=== PATIENT | male | born 1955 | race Hispanic/Latino ===

== ENCOUNTER 2024-10-27 02:03 | Inpatient (IN) | payer OTHER, MEDICARE ==
[2024-10-27] VITALS (33 sets, daily range): BP systolic 81–121; BP diastolic 46–79; PULSE 59–81; RESP 12–23; TEMP 97.8–99.4; O2SAT 96–98
[~2024-10-27] VITALS: Ht 172.7 cm; Wt 83.9 kg
[2024-10-27 02:18] LABS: BASOPHILS # (AUTO) 0.07 K/uL (0.00-0.20); BASOPHILS % (AUTO) 0.7 % (0.0-5.0); EOSINOPHILS # (AUTO) 0.32 K/uL (0.00-0.70); HEMATOCRIT 26.1 % (42-54); IMMATURE GRANULOCYTE ABSOLUTE 0.07 K/uL (0-1); LYMPHOCYTES # (AUTO) 1.9 K/uL (1.0-4.8); LYMPHOCYTES % (AUTO) 17.3 % (21.0-51.0); MEAN CORPUSCULAR HEMOGLOBIN 21.8 pg (27.0-33.0); MEAN CORPUSCULAR HGB CONC 31.4 g/dL (32.0-36.0); MEAN CORPUSCULAR VOLUME 69.4 fL (79-99); MONOCYTES # (AUTO) 0.8 K/uL (0.1-1.0); NEUTROPHILS # (AUTO) 7.7 K/uL (1.8-7.7); NEUTROPHILS % (AUTO) 71.3 % (40.0-77.0); PLATELET COUNT (AUTO) 309 K/uL (130-400); RED BLOOD CELL COUNT(AUTO) 3.76 MIL/uL (4.50-6.20); RED CELL DISTRIBUTION WIDTH 18.6 % (11.0-15.5); WHITE BLOOD COUNT (AUTO) 10.7 K/uL (4.8-10.8)
[2024-10-27 02:25] LABS: CREATININE 1.2 mg/dL (0.5-1.3); POTASSIUM 4.2 mmol/L (3.5-5.1)
--- NOTE | 2024-10-27 02:30 | ERN ---
ED Note History of Present Illness Stated Complaint: CHEST PAIN Chief Complaint: Chest Pain Time Seen by MD: 02:08 Dictation: This is a 68-year-old male who presented to the emergency room via EMS with complaints of midsternal chest pain that started yesterday. Over the past 24 hours he has been taking nitroglycerin without much relief. He stated that in the past nitro would relieve the pain due to persistent pain he came into the ER for evaluation. Denied any diaphoresis syncope. He denied any radiation to other areas. This is the patient's 1st presentation to this hospital and no old records are available for review Temperature 97 pulse 73 respirations 12 blood pressure 123/79 with a pulse oximetry of 98% on room air His chronic medical problems include diabetes mellitus type 2, hypertension, hypercholesterolemia, history of an OR and coronary artery disease status post stents in 2015 or so. Allergies: Coded Allergies: No Known Allergies (Unverified Allergy, Unknown, 10/27/24) Past Medical History Past Medical History: Diabetes-Type II, High Cholesterol, Hypertension, OR Surgical History: Other Surgical History Other: 2 STENT PLACEMENTS Family History: Negative Social History: Smokers (Admits to smoking cigarettes daily), Drugs (Admits to cocaine), ETOH RN Note Reviewed/Agreed w/PFSH: Yes Review of System Dictation Constitutional: Negative for fever,chills, and weight loss Eyes: Negative for injury, pain,redness, and discharge ENT: Negative for injury,pain or swelling Cardiovascular: Pause for chest pain, denies palpitations, and edema Respiratory: Negative for shortness of breath, cough, and wheezing, Abdomen/GI: Negative for abdominal pain, nausea, vomiting, diarrhea, and constipation Back: Negative for injury and pain : Negative for injury, bleeding and discharge MS/Extremity: Negative for injury and deformity Skin: Negative for rash, and discoloration Neuro: Negative for headache, weakness, numbness, tingling, and seizure Psych: Negative for suicide ideation, homicidal ideation, and hallucinations Initial Vital Sign VS Vital Signs Date Time Temp Pulse Resp B/P (MAP) Pulse Ox O2 Delivery O2 Flow Rate FiO2 10/27/24 02:07 97.0 73 12 123/79 98 Room Air 0 10/27/24 03:00 21 Physical Exam Dictation General: awake, alert, NAD obese not in any distress Head/Face: Normocephalic, atraumatic Eyes: PERRL, EOMI, vision at baseline ENT: oral cavity clear, TMs clear, no signs of infection Neck: Trachea midline, supple, no nuchal rigidity Cardiovascular: RRR, normal S1/S2, No MRGs, no JVD Respiratory: Emphysematous chest with increased AP diameter, prolonged expiratory phase with occasional rhonchi Abdomen: Soft, non-tender, non-distended, normal bowel sounds, no guarding or rebound. Skin: Warm, dry, normal turgor, no rash MS/Extremity: Pulses equal, no cyanosis, neurovascular intact, FROM Neuro: COAx4, GCS 15, strength 5/5, CN 2-12 intact, normal cerebellar exam, normal gait, Psych: Normal behavior, mood, and affect normal Extremities-trace edema without any palpable cords, Homans sign is negative Results (Laboratory/Radiology) Laboratory/Radiology Laboratory Tests Test 10/27/24 02:08 10/27/24 02:34 10/27/24 03:22 White Blood Count 10.7 K/uL (4.8-10.8) Red Blood Count 3.76 MIL/uL (4.50-6.20) L Hemoglobin 8.2 g/dL (14.0-18.0) L Hematocrit 26.1 % (42-54) L Mean Corpuscular Volume 69.4 fL (79-99) L Mean Corpuscular Hemoglobin 21.8 pg (27.0-33.0) L Mean Corpuscular Hemoglobin Concent 31.4 g/dL (32.0-36.0) L Red Cell Distribution Width 18.6 % (11.0-15.5) H Platelet Count 309 K/uL (130-400) Mean Platelet Volume 9.6 fL (7.5-10.5) Immature Granulocyte % (Auto) 0.7 % (0-1) Neutrophils (%) (Auto) 71.3 % (40.0-77.0) Lymphocytes (%) (Auto) 17.3 % (21.0-51.0) L Monocytes (%) (Auto) 7.0 % (3.0-13.0) Eosinophils (%) (Auto) 3.0 % (0.0-8.0) Basophils (%) (Auto) 0.7 % (0.0-5.0) Neutrophils # (Auto) 7.7 K/uL (1.8-7.7) Lymphocytes # (Auto) 1.9 K/uL (1.0-4.8) Monocytes # (Auto) 0.8 K/uL (0.1-1.0) Eosinophils # (Auto) 0.32 K/uL (0.00-0.70) Basophils # (Auto) 0.07 K/uL (0.00-0.20) Absolute Immature Granulocyte (auto 0.07 K/uL (0-1) Nucleated Red Blood Cells 0.0 % (0.0-0.19) Red Blood Cell Morphology See comments Prothrombin Time 12.1 SEC (9.6-11.6) H Prothromb Time International Ratio 1.09 (0.85-1.15) Activated Partial Thromboplast Time 29.3 SEC (26.3-35.5) Sodium Level 133 mmol/L (136-145) L Potassium Level 4.2 mmol/L (3.5-5.1) Chloride Level 98 mmol/L (101-111) L Carbon Dioxide Level 27 mmol/L (21-32) Blood Urea Nitrogen 18 mg/dL (7-18) Creatinine 1.2 mg/dL (0.5-1.3) Glomerular Filtration Rate Calc 65 mL/min (>90) Random Glucose 101 mg/dL (70-105) Total Calcium 8.3 mg/dL (8.5-10.1) L Total Creatine Kinase 467 U/L (21-232) *H 564 U/L (21-232) #*H B-Type Natriuretic Peptide 1010 pg/mL (0-100) H Troponin I 7.25 ng/mL (0.00-0.05) *H Troponin I High Sensitivity 06063 ng/L (4-75) *H Labs Reviewed?: Yes EKG Comment: Twelve lead EKG done on 10/27/2024 at 8:07 p.m. showed a heart rate of 71, [place] interval 172, QRS duration 132, QT/QTC 446/485 Impression normal sinus rhythm with left bundle branch block and ST depressions in the anterolateral leads with a possible ST elevations in V2 V3. Poor progression of the R-waves. Interpreted by ER MD Dr. Maher Repeat EKG done on 10/27/2024 at 3:08 a.m. showed a heart rate of 70, KY interval 171, QRS 128, QT/QTC 459/495 Impression normal sinus rhythm with ST depressions in the lateral leads and ST elevations in the anterior leads. Interpreted by ER MD Dr. Maher X-RAY Comment: Portable chest x-ray done in the ER showed cardiomegaly with bilateral diffuse prominence of the pulmonary vasculature with a small right pleural effusion overall suggestive of pulmonary edema Interpreted by ER MD Dr. Maher ED Course ED Course Orders Procedure Category Date Status Time Cbc With Differential LAB 10/27/24 Complete 02:08 B-Type Natriuretic LAB 10/27/24 Complete Peptide 02:08 Chest 1vw RAD 10/27/24 Taken 02:08 Creatine Kinase, Total LAB 10/27/24 Complete 02:08 Troponin Poc Order LAB 10/27/24 Complete Only 02:08 Basic Metabolic Panel LAB 10/27/24 Complete 02:08 12 Lead Ekg Tracing- EKG 10/27/24 Logged Technical 02:08 Urinalysis Profile LAB 10/27/24 Logged 02:18 Drug Screen Urine LAB 10/27/24 Logged 02:18 Heparin 25,000 PHA 10/27/24 In Process Units/250ml D5w 03:00 Morphine 4mg Syg PHA 10/27/24 Complete (Morphine 4mg Syg) 03:00 Ondansetron 4mg Inj PHA 10/27/24 Complete (Zofran 4mg Inj) 03:00 Aspirin 325mg Tab PHA 10/27/24 Complete (Aspirin 325mg Tab) 03:00 Nitroglycerin 0.4mg PHA 10/27/24 Complete Sl Tab (Nitrostat) 03:00 12 Lead Ekg Tracing- EKG 10/27/24 Logged Technical 02:59 Creatine Kinase, Total LAB 10/27/24 Complete 02:59 Troponin I High LAB 10/27/24 Complete Sensitivity 02:59 Nitroglycerin PHA 10/27/24 In Process 50mg/D5w 250ml 03:30 Troponin Poc Order LAB 10/27/24 Logged Only 03:03 Pt And Ptt LAB 10/27/24 Complete 03:07 Heparin 5,000 Unit PHA 10/27/24 In Process Vial (Heparin 5,000 U 05:00 Heparin 5,000 Unit PHA 10/27/24 Complete Vial (Heparin 5,000 U 03:52 Heparin 5,000 Unit PHA 10/27/24 Complete Vial (Heparin 5,000 U 04:00 Clopidogrel 300mg Tab PHA 10/27/24 Complete (Plavix 300mg Tab) 04:00 Clopidogrel 300mg Tab PHA 10/27/24 Complete (Plavix 300mg Tab) 03:55 Clopidogrel 300mg Tab PHA 10/27/24 Complete (Plavix 300mg Tab) 04:00 Heparin 5,000 Unit PHA 10/27/24 Complete Vial (Heparin 5,000 U 04:00 Show Dog Trainer Procedure CATH 10/27/24 In Process Request 07:00 Lidocaine Hcl PHA 10/27/24 Complete 400mg/20ml (Lidocaine 04:19 Iohexol (Omnipaque) PHA 10/27/24 Complete 04:19 Heparin-Ns 1,000 PHA 10/27/24 Complete Unit/500 Ml 04:19 Nitroglycerin 50mg PHA 10/27/24 Complete Vial (Tridil 50mg/10m 04:19 Echo 2-D Complete ECHO 10/27/24 Logged 04:20 Cbc Without LAB 10/27/24 Logged Differential 06:00 Cbc Without LAB 10/27/24 Logged Differential 18:00 Cbc Without LAB 10/28/24 Verified Differential 06:00 Cbc Without LAB 10/28/24 Verified Differential 18:00 Basic Metabolic Panel LAB 10/28/24 Verified 04:00 Troponin I High LAB 10/27/24 Logged Sensitivity 04:20 Troponin I High LAB 10/27/24 Logged Sensitivity 07:20 Drug Screen Urine LAB 10/27/24 Logged 04:22 Bivalirudin (Angiomax) PHA 10/27/24 Complete 04:25 Heparin 10,000 PHA 10/27/24 Complete Unit/10ml (Heparin 04:25 Midazolam Hcl (Versed) PHA 10/27/24 Complete 04:34 Atropine 1mg Syg PHA 10/27/24 Complete (Atropine 1mg Syg) 04:57 Show Dog Trainer Vital Signs CPOE 10/27/24 Transmitted 05:33 Intake/Output Show Dog Trainer CPOE 10/27/24 Transmitted 05:33 Physician CPOE 10/27/24 Transmitted Notification Cathlab 05:33 Heart Healthy Diet DIET 10/27/24 Transmitted Breakfast Activity: Bedrest X CPOE 10/27/24 Transmitted ___ Hrs 05:33 Metoprolol Tartrate PHA 10/27/24 In Process 25 Mg Tab (Lopressor 09:00 Aspirin 81mg Chew Tab PHA 10/27/24 In Process (Aspirin 81mg Chew 09:00 Clopidogrel 75mg Tab PHA 10/28/24 In Process (Plavix 75mg) 09:00 Initiate Hypoglycemia MARTINA 10/27/24 In Process Protocol 05:33 Dextrose 50%-Water PHA 10/27/24 In Process (D50w) 06:00 Glucagon 1mg Kit PHA 10/27/24 In Process (Glucagon 1mg Kit) 06:00 Initiate MARTINA 10/27/24 In Process Hyperglycemia Protoco 05:33 Atorvastatin 40mg PHA 10/27/24 In Process (Lipitor 40mg) 21:00 Edm Admit Bridge Order ADM 10/27/24 Verified 05:54 Admit Orders ADM 10/27/24 Verified 05:54 Current Medications Medications (Trade) Dose Ordered Sig/Daniel Route PRN Reason Start Time Stop Time Status Last Admin Dose Admin Aspirin (Aspirin 325mg Tab) 325 mg ONCE ONCE PO 10/27/24 03:00 10/27/24 03:01 DC 10/27/24 04:01 Aspirin (Aspirin 81mg Chew Tab) 81 mg DAILY PO 10/27/24 09:00 11/26/24 08:59 Atorvastatin Calcium (LIPItor 40MG) 40 mg HS PO 10/27/24 21:00 11/26/24 20:59 Atropine Sulfate (Atropine 1mg Syg) 1 mg STK-MED ONCE IVP 10/27/24 04:57 10/27/24 04:57 DC Bivalirudin (Angiomax) 250 mg STK-MED ONCE IV 10/27/24 04:25 10/27/24 04:26 DC Clopidogrel Bisulfate (plaVIX 300MG TAB) 300 mg STK-MED ONCE .ROUTE 10/27/24 03:55 10/27/24 03:56 DC Clopidogrel Bisulfate (plaVIX 300MG TAB) 600 mg ONCE ONCE PO 10/27/24 04:00 10/27/24 04:01 DC 10/27/24 04:02 Clopidogrel Bisulfate (plaVIX 300MG TAB) 600 mg ONCE ONCE PO 10/27/24 04:00 10/27/24 04:01 DC Clopidogrel Bisulfate (plaVIX 75MG) 75 mg DAILY PO 10/28/24 09:00 11/27/24 08:59 Dextrose (D50w) 50 ml AD PRN IV HYPOGLYCEMIA PROTOCOL 10/27/24 06:00 11/26/24 05:59 Glucagon (Glucagon 1mg Kit) 1 mg AD PRN IM HYPOGLYCEMIA PROTOCOL 10/27/24 06:00 11/26/24 05:59 Heparin Sodium (Porcine) (HEParin 10,000 UNIT/10ML) 10,000 unit STK-MED ONCE .ROUTE 10/27/24 04:25 10/27/24 04:26 DC Heparin Sodium (Porcine) (HEParin 5,000 UNIT VIAL) *calculation based on ACTUAL B... AD PRN IV HEPARIN PROTOCOL 10/27/24 05:00 11/26/24 04:59 Heparin Sodium (Porcine) (HEParin 5,000 UNIT VIAL) 5,000 unit STK-MED ONCE .ROUTE 10/27/24 03:52 10/27/24 03:52 DC Heparin Sodium (Porcine) (HEParin 5,000 UNIT VIAL) 8,000 unit ONCE SQ 10/27/24 04:00 10/27/24 04:02 DC Heparin Sodium (Porcine) (HEParin 5,000 UNIT VIAL) 8,000 unit ONCE ONCE IV 10/27/24 04:00 10/27/24 04:03 DC 10/27/24 04:07 Heparin Sodium/ Dextrose 250 ml @ 0 mls/hr PROTOCOL PRN IV PROTOCOL 10/27/24 03:00 10/28/24 02:59 10/27/24 03:43 Heparin Sodium/ Sodium Chloride 1,000 ml @ As Directed STK-MED ONCE IV 10/27/24 04:19 10/27/24 04:19 DC Iohexol (Omnipaque) 35,000 mg STK-MED ONCE IV 10/27/24 04:19 10/27/24 04:19 DC Lidocaine HCl (Lidocaine HCl 400mg/20ml) 20 ml STK-MED ONCE .ROUTE 10/27/24 04:19 10/27/24 04:19 DC Metoprolol Tartrate (loprESSOR) 25 mg BID PO 10/27/24 09:00 11/26/24 08:59 Midazolam HCl (Versed) 2 mg STK-MED ONCE .ROUTE 10/27/24 04:34 10/27/24 04:35 DC Morphine Sulfate (morPHINE 4MG SYG) 4 mg ONCE ONCE IVP 10/27/24 03:00 10/27/24 03:01 DC 10/27/24 04:06 Nitroglycerin (Nitrostat) 0.4 mg AD PRN SL CHEST PAIN 10/27/24 03:00 10/27/24 03:06 DC Nitroglycerin (Tridil 50mg/ 10ml) 50 mg STK-MED ONCE .ROUTE 10/27/24 04:19 10/27/24 04:19 DC Nitroglycerin/ Dextrose 0 ml @ 0 mls/hr AD PRN IV TITRATE 10/27/24 03:30 11/26/24 03:29 10/27/24 03:40 Ondansetron HCl (zoFRAN 4MG INJ) 4 mg ONCE ONCE IVP 10/27/24 03:00 10/27/24 03:01 DC 10/27/24 04:02 Vital Signs Date Time Temp Pulse Resp B/P (MAP) Pulse Ox O2 Delivery O2 Flow Rate FiO2 10/27/24 04:00 66 18 103/67 98 Room Air* 0 21 10/27/24 03:40 116/77 10/27/24 03:30 91 20 120/69 98 Room Air* 0 21 10/27/24 03:15 92 20 120/69 97 Room Air* 0 21 10/27/24 03:00 98.1 91 18 129/69 97 Room Air* 0 21 10/27/24 02:07 97.0 73 12 123/79 98 Room Air 0 I We will perform diagnostic labs, advanced imaging and administer medications according to the patient's complaint. Once the results are available, will review and personally interpreted the labs to rule out any acute life-threateni ng emergency the trach require immediate intervention and treatment. I will then re-evaluate the patient after treatment and diagnostic exams have return to determine whether the patient requires any further testing, can safely be discharged home or need further admission to hospital for additional treatment and evaluation. Labs reviewed BNP 7 showed a sodium of 133 BUN and creatinine are 18 and 1.2 total CK 467 1st set of troponin 7.25. Brain natriuretic peptide is 10 10. CBC showed a white count of 10.7 hemoglobin of 8.2 platelets 309 EKG reviewed. 2:50 a.m.-consulted Dr. Parvez Loomis regional truck driver on-call and shared the EKGs and history and available labs. We will repeat the chest pain bundle end if enzymes trending up we will notify Dr. Loomis for emergent catheterization 3:05 a.m. repeat set of troponins and repeat EKG requested. Patient is started on nitro drip and heparin drip. [place] [address] Dr[address] Loomis was notified immediately and he came in to evaluate the patient and pursue left heart catheterization 4:[address] Loomis took the patient to clinical laboratory science professor for left heart and patient will be admitted to the intensive care unit postprocedure 4:46 a.m. paged mid-level provider Randi for hospitalist group-no response 5:01 a.m. paged mid-level provider randi for hospitalist group-no response 5:19 a.m. paged mid-level provider randi for admission-awaiting call back 5:40 a.m. personally located mid-level provider and gave the face sheet and discussed the patient the patient will be going to intensive care unit after the emergent left heart catheterization for STEMI. She accepted the patient for admission and further management HEART Score Response (Comments) Value History: Moderate suspicion (+1) 1 EKG: Repolarization changes 1 Age: > 65yrs (+2) 2 Risk Factors: 3+ risk factors (+2) 2 HEART Score Risk: Mod Risk for MACE (4-6) Total 6 Medical Decision Making MDM MDM: Differential diagnosis: ACS, NSTEMI, STEMI, pericarditis, atypical chest pain Rationale: Tests considered and ordered secondary to shared decision making include: labs, ECG and radiology Previous outside records reviewed: Old ER visits. Risk of complication and/or morbidity or mortality of patient management: None Medications-Per medication reconciliation Need for hospitalization: Patient does meet criteria for hospitalization. Need for emergency major/minor surgery: No There are no social concerns with this patient. Prescription drug management Prescriptions will include symptomatic care Patient's prior external medical records from other ER visits were reviewed by me as indicated. Prior testing and results from previous visits were reviewed. Prior tests were taken into account with medical decision making and resource utilization, independent historian/historians were used to obtain complete medical history. I independently interpreted the test that were performed, results were reviewed by me and considered findings on radiology if ordered. Medical management and examination interpretation discussions were had by me wi th other qualified healthcare professionals as indicated for the patient's care. Problem List Problem List: (1) Chest pain (2) Diabetes mellitus (3) Coronary artery disease (4) Hypertension (5) Tobacco abuse (6) Cocaine abuse (7) Acute anterior myocardial infarction (8) Acute ST elevation myocardial infarction Critical Care Note Critical Time: 45 minutes Comment(s) Life-threatening illness;-acute ST-elevation OR-anterior, Risk of morbidity mortality-high Complexity of medical decision making-high (X) high probability of sudden clinically significant deterioration in the patient's condition required the highest level of my preparedness to intervene urgently. I provided critical care services requiring my direct and personal management as noted below; (x) chart data review (x) reviewing nurse's notes and/charts (x) documentation time (x) consultation collaboration on findings and therapy options (x) medication orders and management (x) re-evaluations (x) care, transfer of care, and discharge plans (x) ordering and interpreting studies (x) ordering and reviewing labs (x) obtaining necessary history from family, EMS, longterm, private MD, surrogate decision makers because patient was unable to give history due to limitations in the mental status (x) aggregate critical care time was (45 ) minutes. This includes only time during which I was engaged in work directly related to the patient's care as described above whether at the bedside or elsewhere in the ER while the patient was critical. My time did not include minutes spent treating any other patients simultaneously or on activities that did not directly contribute to the patient's treatment. It did not include time spent performing other reported procedures or services of residents if any. Anuradha Maher MDFCCP DX & DISP Disposition: Inpatient Decision to Admit Time: 02:29 Departure Impression: Primary Impression: Chest pain Additional Impressions: Diabetes mellitus, Coronary artery disease, Hypertension, Tobacco abuse, Cocaine abuse, Acute ST elevation myocardial infarction Condition: Stable Additional Instructions: Patient was informed of all the diagnostic labs and procedures conducted in the emergency room today and demonstrated understanding of the results. I personally reviewed and interpreted all the diagnostic exams performed in the ER today. The patient will be admitted to the hospital for further treatment and evaluation. Disposition-admit to facility Condition-stable/guarded Course-uncertain at this time Pain status-decreased Assessment-exam unchanged Admission Certification- I certify that the patients status is appropriate and is based on my best clinical judgment and the patient's condition as documented in the medical records Referrals: NONE (PCP) ANURADHA MAHER MD Oct 27, 2024 02:30
[2024-10-27 02:37] LABS: B-TYPE NATRIURETIC PEPTIDE 1010 pg/mL (0-100)
[2024-10-27] MEDS ORDERED: NITROGLYCERIN 0.4 MG SL TAB SL PRN (03:00)
[2024-10-27 03:34] LABS: INR 1.09 (0.85-1.15); PROTHROMBIN TIME 12.1 SEC (9.6-11.6)
[2024-10-27 03:35] LABS: PARTIAL THROMBOPLASTIN TIME 29.3 SEC (26.3-35.5)
[2024-10-27] MEDS: NITROGLYCERIN 50MG/D5W 250ML 1 BOT IV PRN (03:40)
[2024-10-27] MEDS: HEParin 25,000 UNITS/250ML D5W 250 ML IV PRN (03:43)
[2024-10-27] MEDS ORDERED: HEParin 5,000 UNIT VIAL SQ SCH (04:00)
[2024-10-27] MEDS: ASPIRIN 325MG TAB PO ONE (04:01)
[2024-10-27] MEDS: ondanSETRON 4MG INJ IVP ONE (04:02)
[2024-10-27] MEDS: cloPIDOgrel 300MG TAB PO ONE ×2 (04:02→04:03)
[2024-10-27] MEDS: cloPIDOgrel 300MG TAB ONE (04:02)
[2024-10-27] MEDS: HEParin 5,000 UNIT VIAL ONE (04:03)
[2024-10-27] MEDS: morPHINE 4 MG SYG IVP ONE (04:06)
[2024-10-27] MEDS: HEParin 5,000 UNIT VIAL IV ONE (04:07)
[2024-10-27] MEDS ORDERED: HEParin-NS 1,000 UNIT/500 ML 1,000 ML IV ONE (04:19)
[2024-10-27] MEDS ORDERED: IOHEXOL 350 MG/ML 100ML INFUS..BTL IV ONE (04:19)
[2024-10-27] MEDS ORDERED: LIDOCAINE HCL 400MG/20ML VIAL ONE (04:19)
[2024-10-27] MEDS ORDERED: NITROGLYCERIN 50MG VIAL ONE (04:19)
--- NOTE | 2024-10-27 04:20 | CONS ---
[facility] Cardiology Consultation Note CARDIOLOGY CONSULTATION October Chief complaint: This is a 68-year-old male presents with 24 hours of retrosternal pain and ST-elevation anterior wall myocardial infarction. History of present illness: Patient has known coronary artery disease and underwent placement of a coronary stent [place] [address] Perez and he has been. He began experiencing chest pain yesterday which has been more or less constant nature. His initial EKG showed some ST elevation in V1 through V3. Initial troponin was seven. He gave some history of cocaine use and because of this it was decided to place him on intravenous nitroglycerin and repeat enzymes and EKGs. [place] troponin was [address] and he is having continued pain. A STEMI code was called. I contacted Dr. Kulkarni states that Dr. Sears is covering for intervention for him. Dr. Sears happens to here in the emergency room and has asked me to take the patient to the logging rafter laborer for Dr. Kulkarni. Past medical history: He has a history of hypertension diabetes dyslipidemia. There was no history of previous CVAs ulcers phlebitis. He is status post a partial thyroidectomy. Review of systems: Says about five or six days ago he had a syncopal spell he did not have any chest pain at that time. When he woke in the morning he did not seek any medical attention. Is not clear whether he was using cocaine at that time. Allergies: No known allergies Surgical history: He is status post tonsillectomy and partial thyroid lobectomy. Family history: Positive in multiple family members for coronary atheroscleroti c heart disease Medications: Not available Physical exam: Blood pressure is running 120/70 heart rate is in the 70s the patient is afebrile. There was no elevation of the jugular venous pressure. No bruits are heard. S1 normal S2 physiologically split. No murmur appreciable. Abdomen is soft. Extremities show no edema. Posterior tibial pulses are 2+. Laboratory studies: White count is 10.7 hemoglobin 8.2 platelet count is 214750. Potassium 4.2 BUN 18 creatinine 1.2. CKs were 476 and 564 troponin was 7.25 but repeat troponins 97785 BNP of a 1000. Assessment: 1. Acute anterior ST-elevation myocardial infarction with history of cocaine use no improvement with intravenous nitroglycerin. 2. CAD status post remote stenting with Dr. Kulkarni at [facility] approximately 2014 3. Hypertension 4. Diabetes mellitus type 2 5. History of cocaine use 6. Dyslipidemia 7. Microcytic anemia Plan: Plan is to proceed with emergent left heart catheterization and possible percutaneous intervention. Risks benefits alternatives have been fully discussed with the patient. He has received aspirin 325 clopidogrel 600 heparin 8000 and intravenous nitroglycerin. Continues to have ongoing pain. The patient will be at increased risk for bleeding complications given his microcytic anemia on the other hand he is having an anterior ST-elevation VT and I believe that the risks benefit ratio was in favor of proceeding with emergent left heart catheterization. AIYANA RAYMUNDO MD Oct 27, 2024 04:20
[2024-10-27] MEDS ORDERED: HEParin 10,000 UNIT/10ML (1,000 UNIT/ML) VIAL ONE (04:25)
[2024-10-27] MEDS ORDERED: BIVALIRUDIN 250 MG/VIAL IV ONE (04:25)
--- NOTE | 2024-10-27 04:25 | NUR ---
0300: Patient is alert and oriented and had all questions answered prior to shrimp pond laborer procedure, received patient from Renetta GEORGE with Nitro drip at 10 mcg/min and Heparin 17 u/kg/hr. 0400: Dr. Loomis at bedside, ASA 325 mg PO, Plavix 600 mg PO, Morphine 4 mg IV, Heparin 8000 Unit Bolus, Zofran 4 mg IV all given prior to Needle Setter. Chest pain is currently a 06/20. 0425: Chen GEORGE from Needle Setter at bedside, report given patient to be taken to shrimp pond laborer.
[2024-10-27] MEDS ORDERED: MIDAZOLAM HCL 1 MG/ML 2ML VIAL ONE (04:34)
[2024-10-27] MEDS ORDERED: ATROPINE 1MG SYG IVP ONE (04:57)
[2024-10-27] MEDS ORDERED: HEParin 5,000 UNIT VIAL IV PRN (05:00)
--- NOTE | 2024-10-27 05:44 | PRN ---
Cath Procedure Report CATH PROCEDURE REPORT CARDIAC CATHETERIZATION REPORT Date of Service: Oct 27, 2024 This is a patient of Dr. Kulkarni and Dr. Sears was covering for intervention asked me to take care of the patient. This patient presented with an anterior STEMI and history of cocaine use. Catheterization was delayed to give a trial of nitroglycerin intravenously. Repeat EKG showed no improvement in ST elevations and he had ongoing chest pain and the patient was brought to the cardiac catheterization laboratory after informed consent.. He was prepped and draped in usual fashion. He received a total of 20 cc of 2% xylocaine in the right inguinal area. A six Somali sheath was introduced into the right femoral artery using modified Seldinger technique. A Akanksha four left six Somali diagnostic catheter was advanced over guidewire to the aortic root. Wire was removed and catheter engaged in the left coronary system. The left coronary system was visualized and catheter was removed. Findings: The left main coronary artery is free of obstruction. The left anterior descending artery has a 80-90% InStent restenosis in the proximal portion of the stent that overlaps the 1st diagonal artery. There was 0 ALKA flow beyond the stent. The circumflex artery is a codominant vessel free of obstruction gives rise to normal obtuse marginal branches and a posterolateral branch. At that point the patient had received aspirin clopidogrel and heparin. Subjective four left six Somali guiding catheter was then advanced over guidewire to the aortic root. Wire was removed and catheter engaged in the left main coronary artery. A choice PT extra-support wire was placed across the area of stenosis. ACT of the time was greater than 400. Initial attempts at ballooning the InStent restenosis with a noncompliant 3.0 x 12 mm balloon status flow into the distal LAD but the stenosis not reduced due to watermelon of the balloon. After several attempts this balloon was removed and replaced with a 3.0 by 12 mm semi compliant balloon which was then inflated to 16 atmospheres. Stenosis was reduced from 90% to 20%. ALKA flow improved. The balloon was removed and replaced with a 3.0 x 12 mm drug-eluting stent placed in overlapping fashion in the proximal LAD stent and proximal edge. This was dilated to 14 atmospheres. Stenosis was reduced to 0% with normal ALKA flow. Distal LAD demonstrates diffuse disease and less than 1 mm caliber vessel. The wires and catheters were removed and a Akanksha four right six Somali diagnostic catheter was advanced over guidewire to the aortic root. Because of high takeoff this catheter could not be engaged into the [place] right coronary artery. The catheter was removed and an Amplatz AR2 diagnostic catheter was advanced over guidewire to the aortic root. Wire was removed and catheter engaged into the [place] right coronary artery. The right coronary artery was visualized multiple planes and the catheter was removed under fluoroscopic guidance. The right coronary artery is a codominant vessel free of obstruction gives rise to normal PDA and posterolateral branches. Summary: Successful angioplasty and drug-eluting stent to proximal InStent restenosis of the previous stent placed in 2014. Postprocedure orders written. Report dictated by AIYANA Hammer MD, MD Oct 27, 2024 05:44
[2024-10-27] MEDS ORDERED: DEXTROSE 50%-WATER 50 ML DISP.SYRIN IV PRN (06:00)
[2024-10-27] MEDS ORDERED: GLUCAGON 1MG KIT 1 MG ML IM PRN (06:00)
--- NOTE | 2024-10-27 06:38 | EKG ---
[facility] Test Date: 2024-10-27 Test Time: 02:07:37 Pat Name: EVAN DOCKERY Department: ED Room: Gender: M Ocean Forwarder: [id number] : 1955 Requested By: YVONNE MAHER Order Number: [id number] Reading MD: Parvez Loomis Measurements Intervals [place] Rate: 71 P: 68 MD: 172 QRS: -61 QRSD: 132 T: 122 QT: 446 QTc: 485 Interpretive Statements Sinus rhythm Left bundle branch block Anterior infarct, acute No previous ECG available for comparison Electronically Signed On 10-27-2024 14:59:16 TONGUE AND GROOVE MACHINE FEEDER by Parvez Loomis Please click the below link to view image of tracing.
--- NOTE | 2024-10-27 06:40 | EKG ---
[facility] Test Date: 2024-10-27 Test Time: 03:08:07 Pat Name: EVAN DOCKERY Department: ED Room: Gender: M Chemical Engineering Technician: [id number] : 1955 Requested By: YVONNE MAHER Order Number: [id number] Reading MD: Parvez Loomis Measurements Intervals [place] Rate: 70 P: 71 SC: 171 QRS: -66 QRSD: 128 T: 156 QT: 459 QTc: 495 Interpretive Statements Sinus rhythm Nonspecific IVCD with LAD Abnormal T, consider ischemia, diffuse leads ST elevation, consider anterior injury Compared to ECG 10/27/2024 02:07:37 Intraventricular conduction delay now present T-wave abnormality now present Possible ischemia now present ST (T wave) deviation now present Left bundle-branch block no longer present Myocardial infarct finding still present Electronically Signed On 10-27-2024 14:59:20 TELESALES AGENT by Parvez Loomis Please click the below link to view image of tracing.
--- NOTE | 2024-10-27 06:45 | NUR ---
0603: received patient at 0603 from Table Tender, report given by Chen GEORGE. Post cath vitals initiated. Groin is dry and intact, pulses are palpable 0612: paged Hospitalist team for notification of admission to room 213 0629: repaged Hospitalist team 0633: Bibiana Jauregui NP made aware of patient in room 213
--- NOTE | 2024-10-27 07:30 | NUR ---
Encountered patient supine in bed, in no apparent distress or discomfort. Patient is s/p [facility], on bedrest until 1030. Patient is a/o x 4, denies chest pain, shortness of breath, nausea or vomiting. Right groin dressing is soiled, drainage marked at this time, bilateral lower extremities are cool to touch, pulses noted by Doppler only. Patient encouraged to avoid bending or twisting right lower extremity to prevent further bleeding. Patient verbalized understanding of education utilizing teach back technique. Call light within reach, bed locked in low position, no further needs noted.
--- NOTE | 2024-10-27 08:30 | NUR ---
Patient found in left lateral position with right leg bent attempting to reach over to his breakfast tray on bedside table. Nurse Baptiste redirected patient to remain in supine position with lower extremities in neutral position to avoid bleeding. Patient stated "I forgot that I wasn't supposed to bend the leg". Nurse Baptiste assisted patient with breakfast at this time to prevent him from bending right lower extremity, no further needs noted.
--- NOTE | 2024-10-27 08:35 | HMCIMG ---
Exam Type: CHEST 1VW Clinical Information: chest pain Comparison: None Findings: The lungs are clear of infiltrates. The heart is normal in size. The bony and soft tissue structures of the chest are unremarkable. Impression: Clear lungs.
[2024-10-27] MEDS: ASPIRIN 81MG CHEW TAB PO SCH (08:40)
[2024-10-27] MEDS: metoPROLOL tartRATE 25 MG TAB PO SCH (09:00)
[2024-10-27] MEDS: MAGNESIUM 2GM PREMIX 50ML 50 ML IV ONE (09:02)
--- NOTE | 2024-10-27 10:40 | NUR ---
Oozing noted at right groin access site despite completion of 5 hour bedrest. Soiled dressing was removed manual pressure was held for 15 minutes, along with D stat dressing placed over site. Access site continued to ooze despite manual pressure, Lorri Charge Nurse aware. Pressure dressing applied over site with new D stat dressing. Vitals remain within normal limits and marginal blood pressure. Patient will remain on bedrest in spine position until resolution of groin site bleeding, will inform Dr. Loomis of intervention.
--- NOTE | 2024-10-27 12:22 | HP ---
[facility] HISTORY AND PHYSICAL Date of Service: Oct 27, 2024 Time of Service: 12:22 HISTORY OF PRESENT ILLNESS: [ ] 68-year-old male past medical history of essential hypertension, hyperlipidemia, diabetes mellitus type 2 and previous MA presents to the hospital for nonexertional midsternal chest pain without radiation. Onset occurred while at rest. Chest discomfort described as sharp. Intensity of 10/10 . Exacerbated by nothing . Alleviated by nothing . No Associated symptoms. Cardiovascular risk factors include type 2 diabetes mellitus, essential hypertension, hyperlipidemia. Patient admitted under hospitalist services. On ED p resentation patient's vital signs were stable. H&H 0.2/26.1, BNP 1010, total CK 467, initial high sensitivity troponin 7.25 Followed by 564. EKG showed sinus rhythm, left bundle-branch block, acute anterior infarct. Manager Assessment Dr. Loomis was consulted. Patient was taken to computer laboratory technician for left heart catheterization. Where he had a successful angioplasty and drug-eluting stent to proximal IS restenosis of the previous stent placed in 2014. Postprocedure research director recommends patient continue bedrest until 1600 today. This was reiterated to patient on my assessment with primary nurse at bedside in room 213. Continue dual antiplatelet therapy with aspirin and Plavix, continue atorvastatin, continue metoprolol tartrate and heparin drip. We will continue to follow cardiology's recommendations. Discussed with primary nurse REVIEW OF SYSTEMS CONSTITUTIONAL: Denies fevers, chills, or night sweats. No unintentional weight loss reported. NEUROLOGICAL: Denies headache, amaurosis fugax, motor weakness, sensory deficit, vertigo/spinning sensation, gait abnormalities, or tremors. ENT: No hearing loss, otalgia, otorrhea, rhinitis, rhinorrhea, hoarseness, or sore throat. CARDIOVASCULAR: Denies any exertional angina, dyspnea on exertion, orthopnea, paroxysmal nocturnal dyspnea, palpitations, life-threatening arrhythmias, claudication. PULMONARY: Denies any shortness of breath, cough, phlegm/sputum, hemoptysis, pleuritic chest pain. SLEEP: Denies morning headaches, daytime somnolence or napping. Denies difficulty falling asleep, staying asleep, waking from sleep. Denies knowledge of snoring. GASTROINTESTINAL: Denies any type of dysphagia to either liquids or solids. Denies nausea, vomiting, pyrosis, early satiety, abdominal pain, diarrhea, constipation, or changes in stool consistency or caliber. Denies coffee-ground emesis, hematemesis, hematochezia, or melanotic stools. GENITOURINARY: Denies frequency, urgency, nocturia, hematuria or incontinence (Storage/Irritative symptoms.) Low urinary stream, straining to void, urinary intermittency or hesitancy, splitting of the voiding stream, terminal dribbling. ENDOCRINOLOGIC: Denies polyuria, polydipsia, polyphagia or heat/cold intolerances. HEMATOLOGIC: Denies thrombophilia/previous clots, or coagulopathy/bleeding disorders. ONCOLOGIC: Denies personal history of malignancy. DERMATOLOGIC: Denies rashes or pruritus. PSYCHIATRIC: Denies any suicidal or homicidal ideation. Denies hallucinations. PAST MEDICAL HISTORY: [ ] See H&P PAST SURGICAL HISTORY: [ ] Previous heart stent in 2014 PAST SOCIAL HISTORY: [ ] Denies smoking tobacco, socially drinks alcohol, prior history of cocaine use, lives with family FAMILY HISTORY: [ ] Noncontributory Coded Allergies: No Known Allergies (Unverified Allergy, Unknown, 10/27/24) PHYSICAL EXAM GENERAL APPEARANCE: The patient is awake, alert, and oriented, in no acute cardiopulmonary distress. NEUROLOGICAL: Cranial nerves II-XII grossly intact. Motor is 5/5 in bilateral upper and lower extremities proximal to distal. No sensory deficits. HEENT: Face is symmetric. Pupils are equal and reactive. Extraocular movements are intact. NECK: Supple. No JVD. No thyromegaly. No submental, submandibular, pre- /postauricular, occipital or supraclavicular lymphadenopathy. CHEST: Normal chest expansion. No Telemetry. LUNGS: Absence of any rales, rhonchi or any wheezing. CARDIOVASCULAR: Regular. S1 and S2 normal. No appreciable rubs, murmurs or gallops. ABDOMEN: Soft, nontender, and nondistended. There is no rebound, voluntary guarding, or rigidity. : Deferred. No [place]. EXTREMITIES: Non-edematous and not cyanotic. No clubbing. Good capillary refill. SKIN: No skin breakdown. Vital Sign (Last 24 Hours) 10/27/24 10/27/24 08:00 10:30 Temp 98.2 Pulse 64 Resp 16 B/P (MAP) 92/55 Pulse Ox 97 O2 Delivery Room Air O2 Flow Rate 0 FiO2 21 Intake & Output (last 24hrs) 10/26/24 10/26/24 10/27/24 15:00 23:00 07:00 Output Total 1600 ml Balance -1600 ml LABS: Laboratory: Test 10/27/24 07:36 10/27/24 03:22 10/27/24 02:34 10/27/24 02:08 Range/Units Magnesium Level 1.90 1.80-2.40 mg/dL Troponin I High Sensitivity 69700 *H 4-75 ng/L Total Creatine Kinase 564 #*H 21-232 U/L Troponin I 7.25 *H 0.00-0.05 ng/mL White Blood Count 10.7 4.8-10.8 K/uL Red Blood Count 3.76 L 4.50-6.20 MIL/uL Hemoglobin 8.2 L 14.0-18.0 g/dL Hematocrit 26.1 L 42-54 % Mean Corpuscular Volume 69.4 L 79-99 fL Mean Corpuscular Hemoglobin 21.8 L 27.0-33.0 pg Mean Corpuscular Hemoglobin Concent 31.4 L 32.0-36.0 g/dL Red Cell Distribution Width 18.6 H 11.0-15.5 % Platelet Count 309 130-400 K/uL Mean Platelet Volume 9.6 7.5-10.5 fL Immature Granulocyte % (Auto) 0.7 0-1 % Neutrophils (%) (Auto) 71.3 40.0-77.0 % Lymphocytes (%) (Auto) 17.3 L 21.0-51.0 % Monocytes (%) (Auto) 7.0 3.0-13.0 % Eosinophils (%) (Auto) 3.0 0.0-8.0 % Basophils (%) (Auto) 0.7 0.0-5.0 % Neutrophils # (Auto) 7.7 1.8-7.7 K/uL Lymphocytes # (Auto) 1.9 1.0-4.8 K/uL Monocytes # (Auto) 0.8 0.1-1.0 K/uL Eosinophils # (Auto) 0.32 0.00-0.70 K/uL Basophils # (Auto) 0.07 0.00-0.20 K/uL Absolute Immature Granulocyte (auto 0.07 0-1 K/uL Nucleated Red Blood Cells 0.0 0.0-0.19 % Red Blood Cell Morphology See comments Prothrombin Time 12.1 H 9.6-11.6 SEC Prothromb Time International Ratio 1.09 0.85-1.15 Activated Partial Thromboplast Time 29.3 26.3-35.5 SEC Sodium Level 133 L 136-145 mmol/L Potassium Level 4.2 3.5-5.1 mmol/L Chloride Level 98 L 101-111 mmol/L Carbon Dioxide Level 27 21-32 mmol/L Blood Urea Nitrogen 18 7-18 mg/dL Creatinine 1.2 0.5-1.3 mg/dL Glomerular Filtration Rate Calc 65 >90 mL/min Random Glucose 101 70-105 mg/dL Total Calcium 8.3 L 8.5-10.1 mg/dL B-Type Natriuretic Peptide 1010 H 0-100 pg/mL Current Medications Medications (Trade) Dose Ordered Sig/Daniel Route PRN Reason Start Time Stop Time Status Last Admin Dose Admin Aspirin (Aspirin 81mg Chew Tab) 81 mg DAILY PO 10/27/24 09:00 11/26/24 08:59 10/27/24 08:40 81 MG Atorvastatin Calcium (LIPItor 40MG) 40 mg HS PO 10/27/24 21:00 11/26/24 20:59 Clopidogrel Bisulfate (plaVIX 75MG) 75 mg DAILY PO 10/28/24 09:00 11/27/24 08:59 Dextrose (D50w) 50 ml AD PRN IV HYPOGLYCEMIA PROTOCOL 10/27/24 06:00 11/26/24 05:59 Glucagon (Glucagon 1mg Kit) 1 mg AD PRN IM HYPOGLYCEMIA PROTOCOL 10/27/24 06:00 11/26/24 05:59 Heparin Sodium (Porcine) (HEParin 5,000 UNIT VIAL) *calculation based on ACTUAL B... AD PRN IV HEPARIN PROTOCOL 10/27/24 05:00 11/26/24 04:59 Heparin Sodium (Porcine) (HEParin 5,000 UNIT VIAL) 8,000 unit ONCE SQ 10/27/24 04:00 10/27/24 04:02 DC Heparin Sodium/ Dextrose 250 ml @ 0 mls/hr PROTOCOL PRN IV PROTOCOL 10/27/24 03:00 10/28/24 02:59 10/27/24 03:43 13.09 MLS/HR Metoprolol Tartrate (loprESSOR) 25 mg BID PO 10/27/24 09:00 11/26/24 08:59 Nitroglycerin (Nitrostat) 0.4 mg AD PRN SL CHEST PAIN 10/27/24 03:00 10/27/24 03:06 DC Nitroglycerin/ Dextrose 0 ml @ 0 mls/hr AD PRN IV TITRATE 10/27/24 03:30 11/26/24 03:29 10/27/24 03:40 3 MLS/HR DIAGNOSTICS / RADIOLOGY: [ ] ASSESSMENT: [ ] Acute anterior STEMI, POA Essential hypertension Diabetes mellitus type 2 Hyperlipidemia CAD History of heart stent [place] [address] Kulkarni Anemia, rule out iron-deficiency History of cocaine use PLAN: [ ] Admitted to the ICU S/p heart catheterization with successful angioplasty and drug-eluting stent to proximal in stent restenosis of the previous stent placed 2014 Started on heart healthy diet Continue bedrest until 1600 today Monitor for bleeding Starting dual antiplatelet therapy with [id number] mg p.o. daily and [id number] mg p.o. daily Continue statin therapy with atorvastatin 40 mg p.o. HS Continue metoprolol mg p.o. b.i.d. Continue heparin drip Continue nitroglycerin drip Following Dr. Higgins's recommendations Pending 2D echo Home medications to be reviewed and reconciled Monitoring replace electrolytes Monitor a.m. labs PRN Treatment - Add when necessary meds for nausea, vomiting, pain, constipation, insomnia. DVT/GI prophylaxis- Continue heparin at current doses. Full CODE STATUS ADVANCED CARE PLANNING 1. Which of the following were discussed? Hospice Care - No Therapeutic options - Yes Advance Directives - Yes Other discussions - no advanced directives at this time 2. Discussed with who? Patient 3. Voluntary nature of this service was explained to the patient? Yes 4. Amount of time spent - __35 minutes 5. Reviewed by Physician? (if this service was performed by NPP) Yes This document was generated in part using voice recognition software, occasional wrong word or sound alike substitutions may have occurred due to the inherent limitations of voice recognition software. Read the chart carefully and recognize using context, where the substitutions have occurred. Although every effort was made to edit the content, youth agent and typing errors may occur DIOR BROWN Oct 27, 2024 12:22
--- NOTE | 2024-10-27 13:30 | NUR ---
As per patient, his home medications stayed at home, no one is available to bring them to him at this time.
[2024-10-27 14:57] LABS: HEMATOCRIT 27.6 % (42-54)
--- NOTE | 2024-10-27 17:35 | NUR ---
INITIAL/DCP HOME Met w pt to discuss dcp. Pt admitted w STEMI. PCP Dr Gonzalez. EC son Raphael Mazariegos [phone]. Preferred pharmacy: [facility]. Pt lives w his son Raphael Mazariegos. He uses a walker for ambulation and requires assist w ADLs. He receives provider services from [facility]. Pt uses tranportation services or will ask his neighbor for a ride. Discharge goal is to return home. Addendum: 10/27/24 at 1738 by MARCELLO MEJIA CM Amended: Links added.
[2024-10-27] MEDS: atorVAStatin 40 MG TABLET PO SCH (21:39)
[2024-10-28] VITALS (90 sets, daily range): BP systolic 62–140; BP diastolic 31–119; PULSE 63–97; RESP 7–33; TEMP 98–98.8; O2SAT 95–99
[2024-10-28] MEDS ORDERED: AMIOdarone 900MG VIAL 360 MG in DEXTROSE 5%-WATER 200 ML IV PRN (05:00)
[2024-10-28 05:19] LABS: BASOPHILS # (AUTO) 0.05 K/uL (0.00-0.20); BASOPHILS % (AUTO) 0.6 % (0.0-5.0); EOSINOPHILS # (AUTO) 0.15 K/uL (0.00-0.70); EOSINOPHILS % (AUTO) 1.7 % (0.0-8.0); HEMATOCRIT 28.3 % (42-54); IMMATURE GRANULOCYTE ABSOLUTE 0.05 K/uL (0-1); LYMPHOCYTES # (AUTO) 1.7 K/uL (1.0-4.8); LYMPHOCYTES % (AUTO) 18.6 % (21.0-51.0); MEAN CORPUSCULAR HEMOGLOBIN 21.4 pg (27.0-33.0); MEAN CORPUSCULAR HGB CONC 30.4 g/dL (32.0-36.0); MEAN CORPUSCULAR VOLUME 70.6 fL (79-99); MONOCYTES # (AUTO) 0.9 K/uL (0.1-1.0); MONOCYTES % (AUTO) 9.8 % (3.0-13.0); NEUTROPHILS # (AUTO) 6.2 K/uL (1.8-7.7); NEUTROPHILS % (AUTO) 68.7 % (40.0-77.0); PLATELET COUNT (AUTO) 302 K/uL (130-400); RED BLOOD CELL COUNT(AUTO) 4.01 MIL/uL (4.50-6.20); RED CELL DISTRIBUTION WIDTH 18.6 % (11.0-15.5)
[2024-10-28 05:54] LABS: ALBUMIN 2.7 g/dL (3.5-5.0); BILIRUBIN,TOTAL 0.3 mg/dL (0.2-1.0); POTASSIUM 4.5 mmol/L (3.5-5.1); TOTAL PROTEIN, SERUM 6.3 g/dL (6.0-8.3)
[2024-10-28 05:58] LABS: % IRON SATURATION 3.7 % (30-44)
--- NOTE | 2024-10-28 07:20 | NUR ---
patient had non sustained run of V-Tach at 07:19hrs. Dr. Loomis was immediately notified. Doctor was informed metoprolol had been on hold because of low blood pressure. Orders to decrease metoprolol from 25mg to 12.5mg were placed and executed. Magnesium lab was also ordered
[2024-10-28] MEDS: cloPIDOgrel 75MG TAB PO SCH (07:44)
[2024-10-28] MEDS: metoPROLOL tartRATE 25 MG TAB PO SCH (07:49)
[2024-10-28] MEDS: metoPROLOL tartRATE 25 MG TAB ONE (07:49)
--- NOTE | 2024-10-28 08:22 | NUR ---
patient resting at this time, no chest pain, no heart palpitations reported. Patient ate 100% of his breakfast. Current VS: HR 65, BP 93/63, O2 98 at room air, RR 16 Addendum: 10/28/24 at 0839 by FARHAD OSORIO RN RN re-check BP 69/39 Dr. Loomis was paged. ARIEL Guevara returned call, but Dr. Loomis in procedure. Will call back when finished
--- NOTE | 2024-10-28 08:48 | NUR ---
patient placed in Trendelenburg position BP 93/55. Per Dr. Loomis call Dr. Kulkarni as he is the patient's information technology advisor
[2024-10-28] MEDS: 0.9%NACL 1000ML 1,000 ML IV SCH ×2 (10:06→10:07)
[2024-10-28] MEDS ORDERED: LEVO75 PO (10:24)
[2024-10-28] MEDS ORDERED: ATOR40TA71 PO (10:24)
[2024-10-28] MEDS ORDERED: SPIR25TA6 PO (10:24)
[2024-10-28] MEDS ORDERED: CARV12.511 PO (10:24)
[2024-10-28] MEDS ORDERED: TRAM50TA4 (10:24)
[2024-10-28] MEDS ORDERED: CLOP75TA32 PO (10:24)
[2024-10-28] MEDS ORDERED: APIX5TAB PO (10:24)
[2024-10-28] MEDS ORDERED: SACU1TAB PO (10:24)
[2024-10-28] MEDS ORDERED: NITR0.4T50 (10:24)
[2024-10-28] MEDS ORDERED: METF-444 (10:24)
[2024-10-28] MEDS ORDERED: RANO10005 PO (10:24)
[2024-10-28] MEDS ORDERED: CLON0.1T2 PO (10:24)
--- NOTE | 2024-10-28 12:37 | PN ---
[facility] PROGRESS NOTE Date of Service: Oct 28, 2024 Time of Service: 12:32 SUBJECTIVE: [Patient underwent left heart catheterization PCI and stent placement yesterday. no acute events reported overnight. ] 10/28 Patient is experiencing episodes of hypotension. Blood pressure medications have been adjusted. REVIEW OF SYSTEMS CONSTITUTIONAL: Denies fevers, chills, or night sweats. No unintentional weight loss reported. NEUROLOGICAL: Denies headache, amaurosis fugax, motor weakness, sensory deficit, vertigo/spinning sensation, gait abnormalities, or tremors. ENT: No hearing loss, otalgia, otorrhea, rhinitis, rhinorrhea, hoarseness, or sore throat. CARDIOVASCULAR: Denies any exertional angina, dyspnea on exertion, orthopnea, paroxysmal nocturnal dyspnea, palpitations, life-threatening arrhythmias, claudication. PULMONARY: Denies any shortness of breath, cough, phlegm/sputum, hemoptysis, pleuritic chest pain. SLEEP: Denies morning headaches, daytime somnolence or napping. Denies difficulty falling asleep, staying asleep, waking from sleep. Denies knowledge of snoring. GASTROINTESTINAL: Denies any type of dysphagia to either liquids or solids. Denies nausea, vomiting, pyrosis, early satiety, abdominal pain, diarrhea, constipation, or changes in stool consistency or caliber. Denies coffee-ground emesis, hematemesis, hematochezia, or melanotic stools. GENITOURINARY: Denies frequency, urgency, nocturia, hematuria or incontinence (Storage/Irritative symptoms.) Low urinary stream, straining to void, urinary intermittency or hesitancy, splitting of the voiding stream, terminal dribbling. ENDOCRINOLOGIC: Denies polyuria, polydipsia, polyphagia or heat/cold intolerances. HEMATOLOGIC: Denies thrombophilia/previous clots, or coagulopathy/bleeding disorders. ONCOLOGIC: Denies personal history of malignancy. DERMATOLOGIC: Denies rashes or pruritus. PSYCHIATRIC: Denies any suicidal or homicidal ideation. Denies hallucinations. PHYSICAL EXAM GENERAL APPEARANCE: The patient is awake, alert, and oriented, in no acute cardiopulmonary distress. NEUROLOGICAL: Cranial nerves II-XII grossly intact. Motor is 5/5 in bilateral upper and lower extremities proximal to distal. No sensory deficits. HEENT: Face is symmetric. Pupils are equal and reactive. Extraocular movements are intact. NECK: Supple. No JVD. No thyromegaly. No submental, submandibular, pre- /postauricular, occipital or supraclavicular lymphadenopathy. CHEST: Normal chest expansion. No Telemetry. LUNGS: Absence of any rales, rhonchi or any wheezing. CARDIOVASCULAR: Regular. S1 and S2 normal. No appreciable rubs, murmurs or gallops. ABDOMEN: Soft, nontender, and nondistended. There is no rebound, voluntary guarding, or rigidity. : Deferred. No Rendon. EXTREMITIES: Non-edematous and not cyanotic. No clubbing. Good capillary refill. SKIN: No skin breakdown. Vital Signs (last 8hr) Date Time Temp Pulse Resp B/P (MAP) Pulse Ox O2 Delivery O2 Flow Rate FiO2 10/28/24 12:00 70 17 104/61 100 Room Air 10/28/24 11:46 77 20 108/69 93 Room Air 10/28/24 11:30 71 19 89/60 99 Room Air 10/28/24 11:15 98.6 67 20 85/46 97 Room Air 10/28/24 11:00 63 19 86/51 98 Room Air 10/28/24 10:50 68 13 107/56 99 Room Air 10/28/24 10:45 68 18 78/52 99 Room Air 10/28/24 10:30 73 11 98/38 100 Room Air 10/28/24 10:15 68 13 86/48 99 Room Air 10/28/24 10:00 66 22 94/51 96 Room Air 10/28/24 09:45 70 18 93/51 95 Room Air 10/28/24 09:30 69 20 85/56 94 Room Air 10/28/24 09:15 65 19 79/51 95 Room Air 10/28/24 09:02 75 10 92/55 97 Room Air 10/28/24 09:00 68 16 78/48 98 Room Air 10/28/24 08:45 66 18 88/60 95 Room Air 10/28/24 08:31 66 18 62/33 97 Room Air 10/28/24 08:15 98.2 66 19 64/38 97 Room Air 10/28/24 07:45 84 16 93/63 98 Room Air 10/28/24 07:15 74 17 97/42 99 Room Air 10/28/24 06:45 72 18 92/32 95 Room Air 10/28/24 06:23 77 19 80/49 97 Room Air 10/28/24 06:22 71 16 78/46 99 Room Air 10/28/24 06:21 74 19 73/31 96 Room Air 10/28/24 06:15 71 19 72/41 97 Room Air 10/28/24 06:00 83 15 90/46 99 Room Air 10/28/24 05:30 79 12 97/39 99 Room Air 10/28/24 05:00 77 14 140/56 99 Room Air LABS: Laboratory: Test 10/28/24 06:14 10/28/24 04:47 10/27/24 07:36 10/27/24 05:16 Range/Units Whole Blood Glucose 106 70-110 MG/DL White Blood Count 9.0 4.8-10.8 K/uL Red Blood Count 4.01 L 4.50-6.20 MIL/uL Hemoglobin 8.6 L 14.0-18.0 g/dL Hematocrit 28.3 L 42-54 % Mean Corpuscular Volume 70.6 L 79-99 fL Mean Corpuscular Hemoglobin 21.4 L 27.0-33.0 pg Mean Corpuscular Hemoglobin Concent 30.4 L 32.0-36.0 g/dL Red Cell Distribution Width 18.6 H 11.0-15.5 % Platelet Count 302 130-400 K/uL Mean Platelet Volume 10.3 7.5-10.5 fL Immature Granulocyte % (Auto) 0.6 0-1 % Neutrophils (%) (Auto) 68.7 40.0-77.0 % Lymphocytes (%) (Auto) 18.6 L 21.0-51.0 % Monocytes (%) (Auto) 9.8 3.0-13.0 % Eosinophils (%) (Auto) 1.7 0.0-8.0 % Basophils (%) (Auto) 0.6 0.0-5.0 % Neutrophils # (Auto) 6.2 1.8-7.7 K/uL Lymphocytes # (Auto) 1.7 1.0-4.8 K/uL Monocytes # (Auto) 0.9 0.1-1.0 K/uL Eosinophils # (Auto) 0.15 0.00-0.70 K/uL Basophils # (Auto) 0.05 0.00-0.20 K/uL Absolute Immature Granulocyte (auto 0.05 0-1 K/uL Nucleated Red Blood Cells 0.0 0.0-0.19 % Sodium Level 138 136-145 mmol/L Potassium Level 4.5 3.5-5.1 mmol/L Chloride Level 105 101-111 mmol/L Carbon Dioxide Level 25 21-32 mmol/L Blood Urea Nitrogen 19 H 7-18 mg/dL Creatinine 1.0 0.5-1.3 mg/dL Glomerular Filtration Rate Calc 81 >90 mL/min Random Glucose 92 70-105 mg/dL Total Calcium 8.4 L 8.5-10.1 mg/dL Magnesium Level 2.00 1.80-2.40 mg/dL Iron Level 12 L 65-175 mcg/dL Total Iron Binding Capacity 323 250-450 mcg/dL Percent Iron Saturation 3.7 L 30-44 % Total Bilirubin 0.3 0.2-1.0 mg/dL Aspartate Amino Transf (AST/SGOT) 145 H 10-37 U/L Alanine Aminotransferase (ALT/SGPT) 31 12-78 U/L Alkaline Phosphatase 72 50-136 U/L Total Protein 6.3 6.0-8.3 g/dL Albumin 2.7 L 3.5-5.0 g/dL Vitamin B12 Level 246 193-986 pg/mL Troponin I High Sensitivity 87040 *H 4-75 ng/L Activated Clotting Time 310 H 100-180 SEC Test 10/27/24 03:22 10/27/24 02:34 10/27/24 02:08 Range/Units Total Creatine Kinase 564 #*H 21-232 U/L Troponin I 7.25 *H 0.00-0.05 ng/mL Red Blood Cell Morphology See comments Prothrombin Time 12.1 H 9.6-11.6 SEC Prothromb Time International Ratio 1.09 0.85-1.15 Activated Partial Thromboplast Time 29.3 26.3-35.5 SEC B-Type Natriuretic Peptide 1010 H 0-100 pg/mL Current Medications Medications (Trade) Dose Ordered Sig/Daniel Route PRN Reason Start Time Stop Time Status Last Admin Dose Admin Aspirin (Aspirin 81mg Chew Tab) 81 mg DAILY PO 10/27/24 09:00 11/26/24 08:59 10/28/24 07:44 81 MG Atorvastatin Calcium (LIPItor 40MG) 40 mg HS PO 10/27/24 21:00 11/26/24 20:59 10/27/24 21:39 40 MG Clopidogrel Bisulfate (plaVIX 75MG) 75 mg DAILY PO 10/28/24 09:00 11/27/24 08:59 10/28/24 07:44 75 MG Dextrose (D50w) 50 ml AD PRN IV HYPOGLYCEMIA PROTOCOL 10/27/24 06:00 11/26/24 05:59 Glucagon (Glucagon 1mg Kit) 1 mg AD PRN IM HYPOGLYCEMIA PROTOCOL 10/27/24 06:00 11/26/24 05:59 Heparin Sodium (Porcine) (HEParin 5,000 UNIT VIAL) *calculation based on ACTUAL B... AD PRN IV HEPARIN PROTOCOL 10/27/24 05:00 11/26/24 04:59 Heparin Sodium (Porcine) (HEParin 5,000 UNIT VIAL) 8,000 unit ONCE SQ 10/27/24 04:00 10/27/24 04:02 DC Heparin Sodium/ Dextrose 250 ml @ 0 mls/hr PROTOCOL PRN IV PROTOCOL 10/27/24 03:00 10/28/24 02:59 DC 10/27/24 03:43 13.09 MLS/HR Metoprolol Tartrate (loprESSOR) 12.5 mg BID PO 10/28/24 09:00 11/27/24 08:59 10/28/24 07:49 12.5 MG Metoprolol Tartrate (loprESSOR) 25 mg BID PO 10/27/24 09:00 10/28/24 07:38 DC Nitroglycerin (Nitrostat) 0.4 mg AD PRN SL CHEST PAIN 10/27/24 03:00 10/27/24 03:06 DC Nitroglycerin/ Dextrose 0 ml @ 0 mls/hr AD PRN IV TITRATE 10/27/24 03:30 11/26/24 03:29 10/27/24 03:40 3 MLS/HR Sodium Chloride 1,000 ml @ 0 mls/hr Q0M IV 10/28/24 10:00 11/27/24 09:59 10/28/24 10:07 300 MLS/HR Sodium Chloride 1,000 ml @ 100 mls/hr Q10H IV 10/28/24 10:00 11/27/24 09:59 10/28/24 10:06 100 MLS/HR DIAGNOSTICS / RADIOLOGY: [ ] ASSESSMENT: [ ] Acute anterior STEMI, POA Essential hypertension Diabetes mellitus type 2 Hyperlipidemia CAD History of heart stent [place] [address] Kulkarni Anemia, rule out iron-deficiency History of cocaine use PLAN: [ ] Admitted to the ICU S/p heart catheterization with successful angioplasty and drug-eluting stent to proximal in stent restenosis of the previous stent placed 2014 Continue heart healthy diet Monitor for bleeding Continue dual antiplatelet therapy with mg p.o. daily and [id number] mg p.o. daily Continue statin therapy with atorvastatin 40 mg p.o. HS Agree with decreasing metoprolol tartrate to 12.5 mg p.o. b.i.d. Following Dr. Higgins's recommendations Follow up 2D echo continue IV fluids Monitoring replace electrolytes Monitor a.m. labs PRN Treatment - Add when necessary meds for nausea, vomiting, pain, constipation, insomnia. DVT/GI prophylaxis- Continue heparin at current doses. Full CODE STATUS Case discussed with patient and nurse at bedside Critical care Attention time: Greater than 30 minutes EMILIA BARBER IV, MD Oct 28, 2024 12:37
--- NOTE | 2024-10-28 12:50 | PN ---
CARDIOLOGY PROGRESS REPORT LOCATION: Currently in room 213. SUBJECTIVE: This 68-year-old man came to the Emergency room early on 10/27/2024. The patient had been having chest discomfort, taking increasing amounts of sublingual nitroglycerin over the preceding 24 hours. His electrocardiogram showed normal sinus rhythm, left anterior fascicular block with evidence of an acute anterior PR. The patient was taken to the cardiac catheterization laboratory by Dr. Loomis, who found a critical stenosis in the previously stented LAD. The patient underwent angioplasty plus additional stenting of the LAD with excellent results. The images also showed that the previously placed stent in the posterior descending artery was widely patent. A left ventricular angiogram was not done, however. His echocardiogram is pending. PAST CARDIAC HISTORY: The patient was last seen by me as an outpatient on 02/07/2023. He has known coronary artery disease, undergoing angioplasty and stenting of the LAD and the posterior descending artery in 04/2013. He underwent cardiac catheterization by Dr. Aguayo in 2014 without additional intervention. His last cardiac catheterization was done by me in January 2023 with both the LAD and the posterior descending artery stents widely patent. His ejection fraction was thought to be 35-40% at that time compared to 45-50% in 2014 and 55% in 2012. PHYSICAL EXAMINATION: GENERAL: Currently, the patient is resting comfortably in bed in no acute distress. He is lying supine/slightly Trendelenburg position. VITAL SIGNS: Blood pressure 80/49, heart rate 77. The patient is receiving intravenous fluids. LUNGS: Clear bilaterally. NECK: There is no obvious JVD or HJR. Carotids are normal. HEART: S1 is soft, S2 is single. There is no S3 or S4. There is a grade 2/6 systolic murmur at the lower left sternal border radiating to the suprasternal notch. No diastolic murmurs, no pericardial friction rubs. ABDOMEN: The abdomen is nondistended. Bowel sounds are positive. No bruits, no masses, no hepatomegaly. EXTREMITIES: There is no edema. The popliteal pulses are intact. RIGHT GROIN: The right groin puncture site is fine, no hematoma, no ecchymoses. CARDIAC RHYTHM: The cardiac rhythm is normal sinus. The patient did have an episode of nonsustained ventricular tachycardia. LABORATORY DATA: Troponins were significantly elevated. First troponin 7.25, second troponin 14,492, third troponin 78,347. His magnesium was replaced. IMPRESSION: This patient presents relatively late in the setting of an acute anterior PR. He was found to have critical stenosis in the previously stented LAD, which now has been stented. PLAN: Medications will be optimized. The echocardiogram will be interpreted. He still may require a MUGA scan to help evaluate his suitability for a possible AICD. TID: [id number] RECEIPT: [id number]
--- NOTE | 2024-10-28 21:16 | NUR ---
BLOOD PRESSURE SOFT 80S -90S SEEMS POSITIONAL UNABLE TO ADMINISTERED METOPROLOL SCHEDULED, S/P STEMI STENTED LAD LHC, BOLUS WAS GIVEN EARLIER, AND ON 100 ML NS IV /HR TOLERATING WELL - PT ASYMPTOMATIC - CONTACTED HOSPITALIST MADE AWARE - NEW ORDER MIDODRINE 5 MG PO X1 DOSE. NOTED AND CARRIED OUT
--- NOTE | 2024-10-28 21:16 | NUR ---
BLOOD PRESSURE I TH
[2024-10-28] MEDS: miDODRine HCL 5 MG TABLET PO ONE (21:34)
--- NOTE | 2024-10-28 22:45 | NUR ---
pt now in afib - patient had been in normal sinus and 1 run of vtach earlier - contacted dr. Kulkarni - new order amiodarone protocol MANJULA NOTED AND CARRIED PUT - WILL COME AND EVALUATE TOMORROW
[2024-10-28] MEDS: AMIOdarone 900MG VIAL 150 MG in DEXTROSE 5%-WATER 100 ML IV PRN (23:00)
[2024-10-28] MEDS: AMIOdarone 900MG VIAL 360 MG in DEXTROSE 5%-WATER 200 ML IV PRN (23:13)
[2024-10-29] VITALS (53 sets, daily range): BP systolic 80–109; BP diastolic 34–75; PULSE 62–75; RESP 11–26; TEMP 98.4–99.6; O2SAT 98
[2024-10-29] MEDS ORDERED: ALBUMIN (HUMAN) 25% 50 ML IV SCH ×2 (01:30→02:30)
--- NOTE | 2024-10-29 01:30 | CONS ---
[facility] CONSULTATION NOTE Date Patient Seen: Oct 29, 2024 Time of Visit: 0200 Supervising Physician: [Dr. Chapito Valderrama] Reason for Consultation: [ICU consult ] Primary Care Physician: [Dr. Bob Gonzalez ] Outpatient Specialists: [ ] Inpatient Consults: [[facility] team: ICU, Dr. Zurdo Loomis: cardiology ] PROBLEM LIST: Non-symptomatic hypotension, rule-out cardiogenic vs. hypovolemic shock- not POA STEMI s/p cardiac cath with LAD stent-POA 10/27/[address] Loomis Paroxysmal afib, requiring antiarrythmia infusion-not POA Primary HTN CHF, systolic vs. diastolic (as stated by the patient), not on exacerbation HLD CAD s/p stent in 2014 HX of MIs Diabetes mellitus HX of thyroid CA s/p thyroidectomy Chronic arthritis Chronic nicotine disorder: 1-pack x 20years Cocaine dependency Depression Anxiety with panic attack PLAN: -Continue critical care management -Give IV albumin and continue with pressor support as needed. -Continue cardiology recommendation: s/p "successful angioplasty and drug- eluting stent to proximal InStent restenosis of the previous stent placed in 2014" -Continue IV Amiodarone drip, wean-off eventually as the patient is now converted to SR controlled rate -Counselling and patient education regarding lifestyle modification with cocaine abstinence -Smoking cessation education for more than 5 minutes, refused nicotine patch HPI: [Per hospitalist's notes: "68-year-old male past medical history of essential hypertension, hyperlipidemia, diabetes mellitus type 2 and previous KS presents to the hospital for nonexertional midsternal chest pain without radiation. Onset occurred while at rest. Chest discomfort described as sharp. Intensity o f 10/10 . Exacerbated by nothing . Alleviated by nothing . No Associated symptoms. Cardiovascular risk factors include type 2 diabetes mellitus, essential hypertension, hyperlipidemia. Patient admitted under hospitalist services. On ED presentation patient's vital signs were stable. H&H 0.2/26.1, BNP 1010, total CK 467, initial high sensitivity troponin 7.25 Followed by 564. EKG showed sinus rhythm, left bundle-branch block, acute anterior infarct. Rate And Cost Analyst Dr. Loomis was consulted. Patient was taken to [facility] lab[facility] for left heart catheterization. Where he had a successful angioplasty and drug-eluting stent to proximal IS restenosis of the previous stent placed in 2014. Postprocedure jewelry consultant recommends patient continue bedrest until 1600 today. This was reiterated to patient on my assessment with primary nurse at bedside in room 213. Continue dual antiplatelet therapy with aspirin and Plavix, continue atorvastatin, continue metoprolol tartrate and heparin drip. We will continue to follow cardiology's recommendations. Discussed with primary nurse." [facility] team was consulted due to persistent hypotension. According to the bedside RN, she informed cardiology earlier regarding this concern and was told that it will get better. Hospitalist SHOP MECHANIC decided to consult BIS. At the time of my assessment, patient BP has improved after 1 bag of IV Albumin with MAP of 71. Another dose was on stand-by in the event of refractory hypotension. Patient earlier received IV NS bolus.Patient was totally asymptomatic and kept on talking non-stop and raises his head constantly while on a flat position without dizziness. Right groin puncture [facility] from [facility] [place] was stable without hematoma or signs of bleeding. Pulses are strong and palpable. Lungs CTA and on room air without signs of compromise. Goals of care were discussed with the patient verbalizing understanding and agreement. On behalf of [facility] team, thank you for the opportunity to participate on Mr. Mazariegos's care. PAST MEDICAL HX: see above PAST SURGICAL HX: noncontributory SOCIAL HISTORY: No tobacco, ETOH, or illicit drug use Coded Allergies: No Known Allergies (Unverified Allergy, Unknown, 10/27/24) REVIEW OF SYSTEMS: 12 point ROS reviewed with patient. Pertinent positives mentioned above. Otherwise negative. PHYSICAL EXAM: GENERAL: alert, awake oriented x 3 HEENT: EOMI, Sclera non icteric, moist mucosa NECK: Supple, no JVD, trachea midline LUNGS: Clear breath sounds bilaterally. No wheezes HEART: Regular rate and rhythm. Normal S1 and S2, without murmurs ABD: Abdomen soft, nontender. Bowel sounds present EXT: No clubbing cyanosis or edema. RIght groin stable without signs of bleeding or hematoma, pulses palpable and strong NEURO: Alert and oriented to person, follows commands Vital Signs (last 8hr) Date Time Temp Pulse Resp B/P (MAP) Pulse Ox O2 Delivery O2 Flow Rate FiO2 10/29/24 00:45 68 22 89/44 98 10/29/24 00:40 68 23 82/44 97 Room Air 10/29/24 00:30 69 23 97 10/29/24 00:15 69 22 81/43 98 Room Air 2/18/25 00:05 71 21 85/45 97 10/29/24 00:00 72 26 96 10/28/24 23:51 98 Room Air* 0 21 10/28/24 23:30 76 21 97 10/28/24 23:14 98.4 75 12 95/54 99 Room Air 10/28/24 23:00 79 18 99 10/28/24 22:45 84 15 97/66 97 Room Air 10/28/24 22:30 90 12 96 10/28/24 22:15 74 7 89/52 97 Room Air 10/28/24 22:00 97 17 99 10/28/24 21:30 75 18 99 10/28/24 21:15 82 15 114/76 99 Room Air 10/28/24 21:00 82 17 99 10/28/24 20:45 75 17 92/60 99 Room Air 10/28/24 20:30 75 20 99 10/28/24 20:15 76 18 85/34 100 10/28/24 20:13 74 19 79/36 100 Room Air 10/28/24 20:00 99 Room Air* 0 21 10/28/24 20:00 98.1 76 16 99 10/28/24 19:45 74 21 80/46 100 10/28/24 19:30 71 33 81/42 100 Room Air 10/28/24 19:15 72 15 86/58 100 10/28/24 19:00 74 15 93/64 100 Room Air 10/28/24 18:56 75 13 97/62 98 Room Air 10/28/24 18:45 73 23 79/42 98 Room Air 10/28/24 18:30 73 24 75/42 100 Room Air 10/28/24 18:15 81 14 78/46 99 Room Air 10/28/24 18:00 71 15 86/55 98 Room Air 10/28/24 17:46 68 25 108/57 100 Room Air LABS: Hematology Labs: Test 10/28/24 04:47 10/27/24 02:08 Range/Units White Blood Count 9.0 4.8-10.8 K/uL Red Blood Count 4.01 L 4.50-6.20 MIL/uL Hemoglobin 8.6 L 14.0-18.0 g/dL Hematocrit 28.3 L 42-54 % Mean Corpuscular Volume 70.6 L 79-99 fL Mean Corpuscular Hemoglobin 21.4 L 27.0-33.0 pg Mean Corpuscular Hemoglobin Concent 30.4 L 32.0-36.0 g/dL Red Cell Distribution Width 18.6 H 11.0-15.5 % Platelet Count 302 130-400 K/uL Mean Platelet Volume 10.3 7.5-10.5 fL Immature Granulocyte % (Auto) 0.6 0-1 % Neutrophils (%) (Auto) 68.7 40.0-77.0 % Lymphocytes (%) (Auto) 18.6 L 21.0-51.0 % Monocytes (%) (Auto) 9.8 3.0-13.0 % Eosinophils (%) (Auto) 1.7 0.0-8.0 % Basophils (%) (Auto) 0.6 0.0-5.0 % Neutrophils # (Auto) 6.2 1.8-7.7 K/uL Lymphocytes # (Auto) 1.7 1.0-4.8 K/uL Monocytes # (Auto) 0.9 0.1-1.0 K/uL Eosinophils # (Auto) 0.15 0.00-0.70 K/uL Basophils # (Auto) 0.05 0.00-0.20 K/uL Absolute Immature Granulocyte (auto 0.05 0-1 K/uL Nucleated Red Blood Cells 0.0 0.0-0.19 % Red Blood Cell Morphology See comments Chemistry Labs: Test 10/28/24 06:14 10/28/24 04:47 10/27/24 07:36 10/27/24 03:22 Range/Units Whole Blood Glucose 106 70-110 MG/DL Sodium Level 138 136-145 mmol/L Potassium Level 4.5 3.5-5.1 mmol/L Chloride Level 105 101-111 mmol/L Carbon Dioxide Level 25 21-32 mmol/L Blood Urea Nitrogen 19 H 7-18 mg/dL Creatinine 1.0 0.5-1.3 mg/dL Glomerular Filtration Rate Calc 81 >90 mL/min Random Glucose 92 70-105 mg/dL Total Calcium 8.4 L 8.5-10.1 mg/dL Magnesium Level 2.00 1.80-2.40 mg/dL Iron Level 12 L 65-175 mcg/dL Total Iron Binding Capacity 323 250-450 mcg/dL Percent Iron Saturation 3.7 L 30-44 % Total Bilirubin 0.3 0.2-1.0 mg/dL Aspartate Amino Transf (AST/SGOT) 145 H 10-37 U/L Alanine Aminotransferase (ALT/SGPT) 31 12-78 U/L Alkaline Phosphatase 72 50-136 U/L Total Protein 6.3 6.0-8.3 g/dL Albumin 2.7 L 3.5-5.0 g/dL Vitamin B12 Level 246 193-986 pg/mL Troponin I High Sensitivity 72676 *H 4-75 ng/L Total Creatine Kinase 564 #*H 21-232 U/L Test 10/27/24 02:34 10/27/24 02:08 Range/Units Troponin I 7.25 *H 0.00-0.05 ng/mL B-Type Natriuretic Peptide 1010 H 0-100 pg/mL Coagulation Labs: Test 10/27/24 05:16 10/27/24 02:08 Range/Units Activated Clotting Time 310 H 100-180 SEC Prothrombin Time 12.1 H 9.6-11.6 SEC Prothromb Time International Ratio 1.09 0.85-1.15 Activated Partial Thromboplast Time 29.3 26.3-35.5 SEC DIAGNOSTICS / RADIOLOGY RESULTS: [ ] PLAN NEURO: Minimize central acting medications as possible. Maintain fall precautions, adequate lighting during the day PULMONARY: Supplemental 02 as needed. Maintain aspiration precautions at all times CARDIOVASCULAR: Follow hemodynamics. Vital signs per facility protocol GI & NUTRITION: Continue with nutritional support. Continue stool softeners and laxatives as needed. KIDNEYS & ELECTROLYTES: Strict monitoring of intake, output and overall fluid balance. Avoid nephrotoxic medications to the extent possible. Medications to be dosed according to renal function. Monitor electrolytes and replace as needed ENDOCRINE: Maintain blood glucose between 100-180 at all times. Hypoglycemia protocol in place INFECTIOUS DISEASE: Trend temperature, WBC and procalcitonin level Follow cultures, deescalate antibiotics as soon as possible. Panculture if new onset fever ONCOLOGY/HEMATOLOGY/COAGULATION: Monitor for s/s of bleeding Monitor hemoglobin, coagulation studies as needed SKIN: Pressure ulcer prevention per facility protocol Specialty mattress ORTHO/REHAB: Continue PT/OT Prophylaxis: Continue GI and DVT prophylaxis Code Status: Full Resuscitation Disposition: TBD Other: Total patient care time: 35 minutes AIYANA GOODMAN AGNP Oct 29, 2024 01:30
--- NOTE | 2024-10-29 01:52 | NUR ---
0030 pt converted to sinus rhythm b.p continues to be soft 80s Dr. Kulkarni was aware, contacted hospitalist Jose Alfredo Oliver BUSINESS AND SERVICES INSTRUCTOR had prescribed x1 dose of midodrine earlier which seemed to help pt, now bp continues to be low, new order consult [facility] critical care. noted and carried out. 0100 paged critical care pending call back [phone] - albumin iv x1 dose for hypotension no improvement continued in 80s richard ramseyip continues 0155 - niecy organ grinder at bedside.
[2024-10-29 04:37] LABS: HEMATOCRIT 22.7 % (42-54); MEAN CORPUSCULAR HEMOGLOBIN 21.4 pg (27.0-33.0); MEAN CORPUSCULAR VOLUME 71.4 fL (79-99); RED BLOOD CELL COUNT(AUTO) 3.18 MIL/uL (4.50-6.20); RED CELL DISTRIBUTION WIDTH 18.5 % (11.0-15.5); WHITE BLOOD COUNT (AUTO) 9.1 K/uL (4.8-10.8)
[2024-10-29 05:05] LABS: ALBUMIN 2.6 g/dL (3.5-5.0); BILIRUBIN,TOTAL 0.3 mg/dL (0.2-1.0); CREATININE 1.1 mg/dL (0.5-1.3); POTASSIUM 4.3 mmol/L (3.5-5.1); TOTAL PROTEIN, SERUM 5.8 g/dL (6.0-8.3)
[2024-10-29] MEDS: AMIOdarone 900MG VIAL 540 MG in DEXTROSE 5%-WATER 300 ML IV PRN (05:26)
--- NOTE | 2024-10-29 10:49 | PN ---
[facility] PROGRESS NOTE Date Patient Seen: Oct 29, 2024 Time of Visit: 10:49 Supervising Physician: [ ] Primary Care Physician: [Dr. Bob Gonzalez ] Outpatient Specialists: [ ] Inpatient Consults: [[facility] team: ICU, Dr. Zurdo Loomis: cardiology ] PROBLEM LIST: Non-symptomatic hypotension, rule-out cardiogenic vs. hypovolemic shock- not POA STEMI s/p cardiac cath with LAD stent-POA 10/27/[address] Loomis Paroxysmal afib, requiring antiarrythmia infusion-not POA Primary HTN CHF, systolic vs. diastolic (as stated by the patient), not on exacerbation HLD CAD s/p stent in 2014 HX of MIs Diabetes mellitus HX of thyroid CA s/p thyroidectomy Chronic arthritis Chronic nicotine disorder: 1-pack x 20years Cocaine dependency Depression Anxiety with panic attack INTERVAL HISTORY: 10/29/2024: At the time of my evaluation, the patient was sitting up to the bedside chair. The staff nurse reports no acute events overnight. He is awake alert and oriented x4 and breathing on room air with optimal oxygen saturation. On the monitor, the patient is hemodynamically stable. A recent 2D echo showed LVEF of 35-40% and a moderate aortic valve stenosis. The patient is status post a heart catheterization with stenting of the LAD and postprocedure developed paroxysmal AFib and is now on amiodarone. The patient is feeding orally. Chemistry panel showed a sodium of 138, potassium of 4.3, chloride 107, CO2 of 26, BUN of 20 and creatinine of 1.1 with a glucose of 94. I's and O's showed a voided output of 400 mL with a net balance of 381.4. This constitutes a average urinary output of 0.22 mL/kg/hr. Hematology panel showed a WBC of 9.1, H&H 6.8/22.7 and a platelet count of 237. Currently, the patient is receiving a transfusion of PRBCs x1. He remains on vancomycin. No other complaint. REVIEW OF SYSTEMS: 12 point ROS reviewed with patient. Pertinent positives mentioned above. Otherwise negative. PHYSICAL EXAM: GENERAL: alert, awake oriented x 3 HEENT: EOMI, Sclera non icteric, moist mucosa NECK: Supple, no JVD, trachea midline LUNGS: Clear breath sounds bilaterally. No wheezes HEART: Regular rate and rhythm. Normal S1 and S2, without murmurs ABD: Abdomen soft, nontender. Bowel sounds present EXT: No clubbing cyanosis or edema. RIght groin stable without signs of bleeding or hematoma, pulses palpable and strong NEURO: Alert and oriented to person, follows commands Vital Signs (last 8hr) Date Time Temp Pulse Resp B/P (MAP) Pulse Ox O2 Delivery O2 Flow Rate FiO2 10/29/24 09:15 72 16 96/42 98 Room Air 10/29/24 08:45 69 21 103/65 96 Room Air 10/29/24 08:15 66 15 96/63 100 Room Air 10/29/24 08:00 98 Room Air* 0 21 10/29/24 07:45 98.4 73 16 103/60 100 Room Air 10/29/24 07:15 63 20 92/53 99 Room Air 10/29/24 07:00 67 14 93/60 97 Room Air 10/29/24 06:30 71 12 99 10/29/24 06:15 64 21 97/65 97 Room Air 10/29/24 06:00 67 24 99 10/29/24 05:45 63 16 96/56 99 10/29/24 05:30 64 23 97 10/29/24 05:15 67 16 88/54 97 Room Air 10/29/24 05:00 68 11 98 10/29/24 04:45 66 23 102/64 99 10/29/24 04:30 62 21 98 10/29/24 04:15 69 21 92/62 99 Room Air 10/29/24 04:00 98 Room Air* 0 21 10/29/24 04:00 73 20 98 10/29/24 03:45 67 20 96/62 96 Room Air 10/29/24 03:30 67 20 94 10/29/24 03:15 69 23 96/60 94 Room Air 10/29/24 03:00 67 22 96 LABS: Hematology Labs: Test 10/29/24 04:16 10/28/24 04:47 Range/Units White Blood Count 9.1 4.8-10.8 K/uL Red Blood Count 3.18 #L 4.50-6.20 MIL/uL Hemoglobin 6.8 #*L 14.0-18.0 g/dL Hematocrit 22.7 L 42-54 % Mean Corpuscular Volume 71.4 L 79-99 fL Mean Corpuscular Hemoglobin 21.4 L 27.0-33.0 pg Mean Corpuscular Hemoglobin Concent 30.0 L 32.0-36.0 g/dL Red Cell Distribution Width 18.5 H 11.0-15.5 % Platelet Count 237 130-400 K/uL Mean Platelet Volume 9.9 7.5-10.5 fL Nucleated Red Blood Cells 0.0 0.0-0.19 % Immature Granulocyte % (Auto) 0.6 0-1 % Neutrophils (%) (Auto) 68.7 40.0-77.0 % Lymphocytes (%) (Auto) 18.6 L 21.0-51.0 % Monocytes (%) (Auto) 9.8 3.0-13.0 % Eosinophils (%) (Auto) 1.7 0.0-8.0 % Basophils (%) (Auto) 0.6 0.0-5.0 % Neutrophils # (Auto) 6.2 1.8-7.7 K/uL Lymphocytes # (Auto) 1.7 1.0-4.8 K/uL Monocytes # (Auto) 0.9 0.1-1.0 K/uL Eosinophils # (Auto) 0.15 0.00-0.70 K/uL Basophils # (Auto) 0.05 0.00-0.20 K/uL Absolute Immature Granulocyte (auto 0.05 0-1 K/uL Chemistry Labs: Test 10/29/24 04:16 10/28/24 06:14 10/28/24 04:47 Range/Units Sodium Level 138 136-145 mmol/L Potassium Level 4.3 3.5-5.1 mmol/L Chloride Level 107 101-111 mmol/L Carbon Dioxide Level 26 21-32 mmol/L Blood Urea Nitrogen 20 H 7-18 mg/dL Creatinine 1.1 0.5-1.3 mg/dL Glomerular Filtration Rate Calc 73 >90 mL/min Random Glucose 94 70-105 mg/dL Total Calcium 7.8 L 8.5-10.1 mg/dL Total Bilirubin 0.3 0.2-1.0 mg/dL Aspartate Amino Transf (AST/SGOT) 62 H 10-37 U/L Alanine Aminotransferase (ALT/SGPT) 19 # 12-78 U/L Alkaline Phosphatase 55 50-136 U/L Total Protein 5.8 L 6.0-8.3 g/dL Albumin 2.6 L 3.5-5.0 g/dL Whole Blood Glucose 106 70-110 MG/DL Magnesium Level 2.00 1.80-2.40 mg/dL Iron Level 12 L 65-175 mcg/dL Total Iron Binding Capacity 323 250-450 mcg/dL Percent Iron Saturation 3.7 L 30-44 % Vitamin B12 Level 246 193-986 pg/mL DIAGNOSTICS / RADIOLOGY RESULTS: [ ] PLAN 10/29/2024: For now, we are going to continue current management for the patient. We will continue on room air and we will adjust oxygen needs. The patient will continue on amiodarone drip and we will follow the Cardiology r ecommendations. The patient is continue on transfusion of PRBCs and we will repeat the H and H 2 hours post transfusion. We will repeat surveillance labs in the morning. Monitor the patient's progress and response to management. We will continue to provide general supportive care, GI and DVT prophylaxis. Further orders per attending MD and hospital course. NEURO: Minimize central acting medications as possible. Fall Precautions. Well lighted room through the day and minimize interruptions through the night to prevent acute delirium. PULMONARY: Supplemental 02 as needed Titrate Fio2 to keep Spo2 > or = 90% DuoNebs and CPT as needed IS hourly while awake for pulmonary hygiene Out of bed to chair as tolerated VAP Bundle CARDIOVASCULAR: Follow hemodynamics. Titrate vasopressor to keep MAP >65 or systolic blood pressure >95mmHg DIPS: [ ] LINES: [ ] GI & NUTRITION: Continue nutritional support Aspirations precautions Prokinetic agents and laxatives as needed KIDNEYS & ELECTROLYTES: Strict monitoring of intake and output Daily weights Avoid nephrotoxic agents Monitor electrolytes and replace as needed Goal urine output of 30mL/hr or 0.5mL/kg/hr Urine output: [ ] Fluid Balance: [ ] ENDOCRINE: Maintain blood glucose between 100-180 at all times. Insulin sliding scale for blood glucose management INFECTIOUS DISEASE: Trend temperature. Victor-culture if febrile. Micro: [ ] Antibiotics: [ ] HEMATOLOGY & COAGULATION: Monitor H&H. Keep Hgb > 7 Transfuse 1 unit of PRBC for Hgb < 7 Transfuse 1 pack of platelets of platelets < 20, 000 Watch for any signs and symptoms of bleeding SKIN: Pressure ulcer prevention per facility protocol Rehab: PT/OT Prophylaxis: GI: [ ] DVT: [ ] Code Status: Full Resuscitation Disposition: ICU Other: Total patient care time exceeds 35 minutes excluding all procedures. Case was discussed and seen with my supervising physician. The above plan was formulated and agreed upon. LIDA COLLINS NP Oct 29, 2024 10:49
--- NOTE | 2024-10-29 11:38 | PN ---
[facility] PROGRESS NOTE Date of Service: Oct 29, 2024 Time of Service: 11:31 SUBJECTIVE: [Patient underwent left heart catheterization PCI and stent placement yesterday. no acute events reported overnight. ] 10/28 Patient is experiencing episodes of hypotension. Blood pressure medications have been adjusted. 10/29 patient continues with hypotension. Overnight patient developed AFib with RVR and was placed on amiodarone drip. Hemoglobin dropped. REVIEW OF SYSTEMS CONSTITUTIONAL: Denies fevers, chills, or night sweats. No unintentional weight loss reported. NEUROLOGICAL: Denies headache, amaurosis fugax, motor weakness, sensory deficit, vertigo/spinning sensation, gait abnormalities, or tremors. ENT: No hearing loss, otalgia, otorrhea, rhinitis, rhinorrhea, hoarseness, or sore throat. CARDIOVASCULAR: Denies any exertional angina, dyspnea on exertion, orthopnea, paroxysmal nocturnal dyspnea, palpitations, life-threatening arrhythmias, claudication. PULMONARY: Denies any shortness of breath, cough, phlegm/sputum, hemoptysis, pleuritic chest pain. SLEEP: Denies morning headaches, daytime somnolence or napping. Denies difficulty falling asleep, staying asleep, waking from sleep. Denies knowledge of snoring. GASTROINTESTINAL: Denies any type of dysphagia to either liquids or solids. Denies nausea, vomiting, pyrosis, early satiety, abdominal pain, diarrhea, constipation, or changes in stool consistency or caliber. Denies coffee-ground emesis, hematemesis, hematochezia, or melanotic stools. GENITOURINARY: Denies frequency, urgency, nocturia, hematuria or incontinence (Storage/Irritative symptoms.) Low urinary stream, straining to void, urinary intermittency or hesitancy, splitting of the voiding stream, terminal dribbling. ENDOCRINOLOGIC: Denies polyuria, polydipsia, polyphagia or heat/cold intolerances. HEMATOLOGIC: Denies thrombophilia/previous clots, or coagulopathy/bleeding disorders. ONCOLOGIC: Denies personal history of malignancy. DERMATOLOGIC: Denies rashes or pruritus. PSYCHIATRIC: Denies any suicidal or homicidal ideation. Denies hallucinations. PHYSICAL EXAM GENERAL APPEARANCE: The patient is awake, alert, and oriented, in no acute cardiopulmonary distress. NEUROLOGICAL: Cranial nerves II-XII grossly intact. Motor is 5/5 in bilateral upper and lower extremities proximal to distal. No sensory deficits. HEENT: Face is symmetric. Pupils are equal and reactive. Extraocular movements are intact. NECK: Supple. No JVD. No thyromegaly. No submental, submandibular, pre- /postauricular, occipital or supraclavicular lymphadenopathy. CHEST: Normal chest expansion. No Telemetry. LUNGS: Absence of any rales, rhonchi or any wheezing. CARDIOVASCULAR: Regular. S1 and S2 normal. No appreciable rubs, murmurs or gallops. ABDOMEN: Soft, nontender, and nondistended. There is no rebound, voluntary guarding, or rigidity. : Deferred. No Rendon. EXTREMITIES: Non-edematous and not cyanotic. No clubbing. Good capillary refill. SKIN: No skin breakdown. Vital Signs (last 8hr) Date Time Temp Pulse Resp B/P (MAP) Pulse Ox O2 Delivery O2 Flow Rate FiO2 10/29/24 09:15 72 16 96/42 98 Room Air 10/29/24 08:45 69 21 103/65 96 Room Air 10/29/24 08:15 66 15 96/63 100 Room Air 10/29/24 08:00 98 Room Air* 0 21 10/29/24 07:45 98.4 73 16 103/60 100 Room Air 10/29/24 07:15 63 20 92/53 99 Room Air 10/29/24 07:00 67 14 93/60 97 Room Air 10/29/24 06:30 71 12 99 10/29/24 06:15 64 21 97/65 97 Room Air 10/29/24 06:00 67 24 99 10/29/24 05:45 63 16 96/56 99 10/29/24 05:30 64 23 97 10/29/24 05:15 67 16 88/54 97 Room Air 10/29/24 05:00 68 11 98 10/29/24 04:45 66 23 102/64 99 10/29/24 04:30 62 21 98 10/29/24 04:15 69 21 92/62 99 Room Air 10/29/24 04:00 98 Room Air* 0 21 10/29/24 04:00 73 20 98 10/29/24 03:45 67 20 96/62 96 Room Air LABS: Laboratory: Test 10/29/24 04:16 10/28/24 06:14 10/28/24 04:47 Range/Units White Blood Count 9.1 4.8-10.8 K/uL Red Blood Count 3.18 #L 4.50-6.20 MIL/uL Hemoglobin 6.8 #*L 14.0-18.0 g/dL Hematocrit 22.7 L 42-54 % Mean Corpuscular Volume 71.4 L 79-99 fL Mean Corpuscular Hemoglobin 21.4 L 27.0-33.0 pg Mean Corpuscular Hemoglobin Concent 30.0 L 32.0-36.0 g/dL Red Cell Distribution Width 18.5 H 11.0-15.5 % Platelet Count 237 130-400 K/uL Mean Platelet Volume 9.9 7.5-10.5 fL Nucleated Red Blood Cells 0.0 0.0-0.19 % Sodium Level 138 136-145 mmol/L Potassium Level 4.3 3.5-5.1 mmol/L Chloride Level 107 101-111 mmol/L Carbon Dioxide Level 26 21-32 mmol/L Blood Urea Nitrogen 20 H 7-18 mg/dL Creatinine 1.1 0.5-1.3 mg/dL Glomerular Filtration Rate Calc 73 >90 mL/min Random Glucose 94 70-105 mg/dL Total Calcium 7.8 L 8.5-10.1 mg/dL Total Bilirubin 0.3 0.2-1.0 mg/dL Aspartate Amino Transf (AST/SGOT) 62 H 10-37 U/L Alanine Aminotransferase (ALT/SGPT) 19 # 12-78 U/L Alkaline Phosphatase 55 50-136 U/L Total Protein 5.8 L 6.0-8.3 g/dL Albumin 2.6 L 3.5-5.0 g/dL Whole Blood Glucose 106 70-110 MG/DL Immature Granulocyte % (Auto) 0.6 0-1 % Neutrophils (%) (Auto) 68.7 40.0-77.0 % Lymphocytes (%) (Auto) 18.6 L 21.0-51.0 % Monocytes (%) (Auto) 9.8 3.0-13.0 % Eosinophils (%) (Auto) 1.7 0.0-8.0 % Basophils (%) (Auto) 0.6 0.0-5.0 % Neutrophils # (Auto) 6.2 1.8-7.7 K/uL Lymphocytes # (Auto) 1.7 1.0-4.8 K/uL Monocytes # (Auto) 0.9 0.1-1.0 K/uL Eosinophils # (Auto) 0.15 0.00-0.70 K/uL Basophils # (Auto) 0.05 0.00-0.20 K/uL Absolute Immature Granulocyte (auto 0.05 0-1 K/uL Magnesium Level 2.00 1.80-2.40 mg/dL Iron Level 12 L 65-175 mcg/dL Total Iron Binding Capacity 323 250-450 mcg/dL Percent Iron Saturation 3.7 L 30-44 % Vitamin B12 Level 246 193-986 pg/mL Current Medications Medications (Trade) Dose Ordered Sig/Daniel Route PRN Reason Start Time Stop Time Status Last Admin Dose Admin Albumin Human 50 ml @ 0 mls/hr AD IV 10/29/24 01:30 11/03/24 01:29 Albumin Human 50 ml @ 0 mls/hr AD IV 10/29/24 02:30 10/29/24 01:34 DC Amiodarone HCl (pacERONE 200MG) 400 mg BID PO 10/29/24 21:00 11/28/24 20:59 Amiodarone HCl 150 mg/Dextrose 103 ml @ 0 mls/hr AD PRN IV Bolus dose 10/28/24 23:00 10/29/24 07:03 DC 10/28/24 23:00 0 MLS/HR Amiodarone HCl 360 mg/Dextrose 218 ml @ 36.333 mls/ hr AD PRN IV As Directed 10/28/24 05:00 10/28/24 23:00 DC Amiodarone HCl 360 mg/Dextrose 218 ml @ 36.333 mls/ hr AD PRN IV As Directed 10/28/24 23:00 10/29/24 07:03 DC 10/28/24 23:13 36.333 MLS/HR Amiodarone HCl 540 mg/Dextrose 300 ml @ 16.667 mls/ hr AD PRN IV As directed 10/29/24 05:00 11/28/24 04:59 10/29/24 05:26 16.667 MLS/HR Aspirin (Aspirin 81mg Chew Tab) 81 mg DAILY PO 10/27/24 09:00 11/26/24 08:59 10/29/24 08:02 81 MG Atorvastatin Calcium (LIPItor 40MG) 40 mg HS PO 10/27/24 21:00 11/26/24 20:59 10/28/24 20:29 40 MG Clopidogrel Bisulfate (plaVIX 75MG) 75 mg DAILY PO 10/28/24 09:00 11/27/24 08:59 10/29/24 08:02 75 MG Dextrose (D50w) 50 ml AD PRN IV HYPOGLYCEMIA PROTOCOL 10/27/24 06:00 11/26/24 05:59 Glucagon (Glucagon 1mg Kit) 1 mg AD PRN IM HYPOGLYCEMIA PROTOCOL 10/27/24 06:00 11/26/24 05:59 Heparin Sodium (Porcine) (HEParin 5,000 UNIT VIAL) *calculation based on ACTUAL B... AD PRN IV HEPARIN PROTOCOL 10/27/24 05:00 11/26/24 04:59 Heparin Sodium (Porcine) (HEParin 5,000 UNIT VIAL) 8,000 unit ONCE SQ 10/27/24 04:00 10/27/24 04:02 DC Heparin Sodium/ Dextrose 250 ml @ 0 mls/hr PROTOCOL PRN IV PROTOCOL 10/27/24 03:00 10/28/24 02:59 DC 10/27/24 03:43 13.09 MLS/HR Metoprolol Tartrate (loprESSOR) 12.5 mg BID PO 10/28/24 09:00 11/27/24 08:59 10/28/24 07:49 12.5 MG Metoprolol Tartrate (loprESSOR) 25 mg BID PO 10/27/24 09:00 10/28/24 07:38 DC Nitroglycerin (Nitrostat) 0.4 mg AD PRN SL CHEST PAIN 10/27/24 03:00 10/27/24 03:06 DC Nitroglycerin/ Dextrose 0 ml @ 0 mls/hr AD PRN IV TITRATE 10/27/24 03:30 11/26/24 03:29 10/27/24 03:40 3 MLS/HR Sodium Chloride 1,000 ml @ 0 mls/hr Q0M IV 10/28/24 10:00 11/27/24 09:59 10/28/24 10:07 300 MLS/HR Sodium Chloride 1,000 ml @ 100 mls/hr Q10H IV 10/28/24 10:00 11/27/24 09:59 10/29/24 01:35 100 MLS/HR DIAGNOSTICS / RADIOLOGY: [ ] ASSESSMENT: [ ] Acute anterior STEMI, POA Essential hypertension Diabetes mellitus type 2 Hyperlipidemia CAD status post stent placement in 2014 History of heart stent [place] [address] Kulkarni Anemia, rule out iron-deficiency History of cocaine use Dependence Anxiety Chronic nicotine disorder History of thyroid cancer status post thyroidectomy PLAN: [ ] Admitted to the ICU S/p heart catheterization with successful angioplasty and drug-eluting stent to proximal in stent restenosis of the previous stent placed 2014 Continue heart healthy diet Monitor for bleeding Continue dual antiplatelet therapy with [id number] mg p.o. daily and [id number] mg p.o. daily Continue statin therapy with atorvastatin 40 mg p.o. HS Continue amiodarone drip, agree with transition to oral Continue metoprolol tartrate 12.5 mg p.o. b.i.d. as tolerated Following Dr. Higgins's recommendations Follow up 2D echo (pending) continue IV fluids with NS Monitoring replace electrolytes Monitor a.m. labs PRN Treatment - Add when necessary meds for nausea, vomiting, pain, constipation, insomnia. DVT/GI prophylaxis- Continue heparin at current doses. Full CODE STATUS Case discussed with patient and nurse at bedside Critical care Attention time: Greater than 30 minutes EMILIA BARBER IV, MD Oct 29, 2024 11:38
[2024-10-29] MEDS: acetaMINOPHEN 325 MG TAB PO PRN (11:45)
[2024-10-29 12:07] LABS: HEMATOCRIT 26.9 % (42-54)
--- NOTE | 2024-10-29 16:47 | NUR ---
Nutritional Note: Pt is in ICU. Lipid panel has been ordered to assess cholesterol. To be seen or until released from ICU. Nutritional concerns: PO intake Recommendations: - Continue Heart Healthy Diet 75 g (1799 1999) - Order lipid panel, A1C, and Vitamin D - Monitor PO intake - Reweigh as able - Monitor care goals RD to follow + available for consult per protocol Signed by dietetic student Génesis Quach Addendum: 10/29/24 at [address] Amended: Links added.
[2024-10-29 17:32] LABS: CHOLESTEROL 98 mg/dL (<200); HDL CHOLESTEROL 43 mg/dL (29-71); LDL DIRECT 49 mg/dL (0-99); TRIGLYCERIDES 60 mg/dL (30-200)
[2024-10-29 18:32] LABS: HEMOGLOBIN A1C 5.8 % (4.0-6.0)
[2024-10-29] MEDS: AMIOdarone 200 MG TABLET PO SCH (19:59)
--- NOTE | 2024-10-29 23:05 | NUR ---
transfer Report given to ARIEL Gibbs. all questions answered. patient awake and alert. denies chest pain and shortness of breath. patient placed on telemetry pack and transferred via wheelchair to room 205.
[2024-10-30] VITALS (8 sets, daily range): BP systolic 99–147; BP diastolic 63–90; PULSE 43–91; RESP 16–22; TEMP 97.9–101.5; O2SAT 97–98
[2024-10-30] MEDS: ALPRAZolam 0.5 MG TABLET PO ONE ×2 (02:14→20:56)
[2024-10-30 04:23] LABS: HEMATOCRIT 23.8 % (42-54); MEAN CORPUSCULAR HEMOGLOBIN 21.6 pg (27.0-33.0); MEAN CORPUSCULAR HGB CONC 29.8 g/dL (32.0-36.0); MEAN CORPUSCULAR VOLUME 72.6 fL (79-99); RED BLOOD CELL COUNT(AUTO) 3.28 MIL/uL (4.50-6.20); RED CELL DISTRIBUTION WIDTH 18.6 % (11.0-15.5); WHITE BLOOD COUNT (AUTO) 9.5 K/uL (4.8-10.8)
[2024-10-30 04:35] LABS: ALBUMIN 2.6 g/dL (3.5-5.0); BILIRUBIN,TOTAL 0.4 mg/dL (0.2-1.0); POTASSIUM 4.1 mmol/L (3.5-5.1); TOTAL PROTEIN, SERUM 5.8 g/dL (6.0-8.3)
--- NOTE | 2024-10-30 12:15 | PN ---
[facility] PROGRESS NOTE Date Patient Seen: Oct 30, 2024 Time of Visit: 12:14 Supervising Physician: Courtney Lui MD Primary Care Physician: [Dr. Bob Gonzalez ] Outpatient Specialists: [ ] Inpatient Consults: [[facility] team: ICU, Dr. Zurdo Loomis: cardiology ] PROBLEM LIST: Acute on chronic anemia requiring blood transfusions Non-symptomatic hypotension, rule-out cardiogenic vs. hypovolemic shock- not POA STEMI s/p cardiac cath with LAD stent-POA 10/27/[address] Loomis Paroxysmal afib, requiring antiarrythmia infusion-not POA Primary HTN CHF, systolic vs. diastolic (as stated by the patient), not on exacerbation HLD CAD s/p stent in 2014 HX of MIs Diabetes mellitus HX of thyroid CA s/p thyroidectomy Chronic arthritis Chronic nicotine disorder: 1-pack x 20years Cocaine dependency Depression Anxiety with panic attack INTERVAL HISTORY: Patient is awake alert and oriented x3. Patient denies chest pain, shortness of breath or palpitations. He does report some fatigue and concern due to he reports his blood pressure usually higher than what it has been.. Patient's blood pressure has been marginal with the last blood pressure 99/63 heart rate in the 60s respiratory rate of 18 saturating 98% and afebrile. He reports good urine output, although his weight has increased to 82.6 kg today. On laboratory H&H decreased to 7.1/23.8 and given recent ME we will transfuse 1 unit of PRBCs due to hemoglobin is less than 8. Patient denies any bloody stools so hematuria at this time. Employment Security Officer has requested and a full blood. Recommended GI evaluation if hemoglobin continues to decrease. Otherwise no major overnight events. REVIEW OF SYSTEMS: 12 point ROS reviewed with patient. Pertinent positives mentioned above. Otherwise negative. PHYSICAL EXAM: GENERAL: alert, awake oriented x 3 HEENT: EOMI, Sclera non icteric, moist mucosa NECK: Supple, no JVD, trachea midline LUNGS: Clear breath sounds bilaterally. No wheezes HEART: Regular rate and rhythm. Normal S1 and S2, without murmurs ABD: Abdomen soft, nontender. Bowel sounds present EXT: No clubbing cyanosis or edema. RIght groin stable without signs of bleeding or hematoma, pulses palpable and strong NEURO: Alert and oriented to person, follows commands Vital Signs (last 8hr) Date Time Temp Pulse Resp B/P (MAP) Pulse Ox O2 Delivery O2 Flow Rate FiO2 10/30/24 12:01 98.2 68 18 99/63 98 Room Air 10/30/24 08:00 97.9 81 18 107/72 95 Room Air 10/30/24 07:55 98 Room Air* 0 21 LABS: Hematology Labs: Test 10/30/24 03:44 Range/Units White Blood Count 9.5 4.8-10.8 K/uL Red Blood Count 3.28 L 4.50-6.20 MIL/uL Hemoglobin 7.1 L 14.0-18.0 g/dL Hematocrit 23.8 L 42-54 % Mean Corpuscular Volume 72.6 L 79-99 fL Mean Corpuscular Hemoglobin 21.6 L 27.0-33.0 pg Mean Corpuscular Hemoglobin Concent 29.8 L 32.0-36.0 g/dL Red Cell Distribution Width 18.6 H 11.0-15.5 % Platelet Count 234 130-400 K/uL Mean Platelet Volume 10.4 7.5-10.5 fL Nucleated Red Blood Cells 0.0 0.0-0.19 % Chemistry Labs: Test 10/30/24 11:23 10/30/24 03:44 10/29/24 11:59 10/29/24 04:16 Range/Units Whole Blood Glucose 112 H 70-110 MG/DL Sodium Level 138 136-145 mmol/L Potassium Level 4.1 3.5-5.1 mmol/L Chloride Level 106 101-111 mmol/L Carbon Dioxide Level 24 21-32 mmol/L Blood Urea Nitrogen 20 H 7-18 mg/dL Creatinine 1.0 0.5-1.3 mg/dL Glomerular Filtration Rate Calc 81 >90 mL/min Random Glucose 96 70-105 mg/dL Total Calcium 7.7 L 8.5-10.1 mg/dL Total Bilirubin 0.4 # 0.2-1.0 mg/dL Aspartate Amino Transf (AST/SGOT) 35 10-37 U/L Alanine Aminotransferase (ALT/SGPT) 17 12-78 U/L Alkaline Phosphatase 56 50-136 U/L Total Protein 5.8 L 6.0-8.3 g/dL Albumin 2.6 L 3.5-5.0 g/dL Hemoglobin A1c 5.8 4.0-6.0 % Estimated Average Glucose (eAG) 120 70-126 mg/dL Triglycerides Level 60 30-200 mg/dL Cholesterol Level 98 <200 mg/dL LDL Cholesterol 49 0-99 mg/dL HDL Cholesterol 43 29-71 mg/dL DIAGNOSTICS / RADIOLOGY RESULTS: [ ]Signed PATIENT: EVAN DOCKERY MR#: [id number] : 1955 SEX: M AGE: 68 LOCATION: 2AH ORDER 43 STATUS: ADM IN REPORT#: [id number] SERVICE [id number] REASON: SOB ORDERING PHYSICIAN: EMILIA BARBER IV, MD PROCEDURE: CXR1VW - CHEST 1VW CHEST 1VW REASON: SOB COMPARISON: 10/27/2024 FINDINGS: Heart size is normal and unchanged. Lungs are clear. There is no vascular congestion. There are no pleural effusion. Mediastinum and bony thorax appear unremarkable. IMPRESSION: 1. No acute finding and no change. DICTATED BY: MACK MAC MD DATE: 10/30/24 155 ELECTRONICALLY SIGNED BY: MACK MAC MD DATE: 10/30/24 1605 PLAN transfuse 1 units of PRBC's and monitor for bleeding. recheck HH post transfusion and cbc in am recommend GI eval if HH continues to decrease. NEURO: Minimize central acting medications as possible. Maintain fall precautions, adequate lighting during the day PULMONARY: Supplemental 02 as needed. Maintain aspiration precautions at all times CARDIOVASCULAR: Follow hemodynamics. Vital signs per facility protocol GI & NUTRITION: Continue with nutritional support. Continue stool softeners and laxatives as needed. KIDNEYS & ELECTROLYTES: Strict monitoring of intake, output and overall fluid balance. Avoid nephrotoxic medications to the extent possible. Medications to be dosed according to renal function. Monitor electrolytes and replace as needed ENDOCRINE: Maintain blood glucose between 100-180 at all times. Hypoglycemia protocol in place INFECTIOUS DISEASE: Trend temperature, WBC and procalcitonin level Follow cultures, deescalate antibiotics as soon as possible. Panculture if new onset fever ONCOLOGY/HEMATOLOGY/COAGULATION: Monitor for s/s of bleeding Monitor hemoglobin, coagulation studies as needed SKIN: Pressure ulcer prevention per facility protocol Specialty mattress ORTHO/REHAB: Continue PT/OT Prophylaxis: Continue GI and DVT prophylaxis Code Status: Full Resuscitation Disposition: TBD Other: Total patient care time: 35 minutes FOUZIA SPANGLER Oct 30, 2024 12:14
--- NOTE | 2024-10-30 12:34 | HMCSR ---
APPROVED REPORT EXAM: Two-dimensional and M-mode echocardiogram with Doppler and color Doppler. INDICATION ICD: ST-elevation AR 2D Dimensions RVDd3.4 cmLVEF(%)41.7 (>50%)LVED Vol(simp.)159.0 mL IVSd1.1 (0.7-1.1cm)FS(%)21 %LVES Vol(simp.)92.7 mL LVDd5.8 (3.8-5.6cm)LA (2D)4.1 (1.6-4.0cm)LVEF(%, simp.)42 % PWd1.1 (0.7-1.1cm)Ao Root(2D)3.3 (2.0-3.7cm)LA ESV INDEX (4CH)38.10 mL/m2 IVSs1.1 cmLVOT diam2.3 (1.8-2.4cm)LA ESV INDEX (2CH)61.30 mL/m2 LVDs4.6 (2.5-4.0cm)LA ESV INDEX (BP)55.20 mL/m2 PWs1.5 cm M-Mode Dimensions EPSS1.5 cm LA (MM)3.9 (1.6-4.0cm) Ao Root(MM)3.1 (2.0-3.7cm) Aortic Valve AoV Vmax3.7 m/Ferdinand Peak GR49.0 mmHgLVOT VTI0.24 m AoV VTI0.7 mAo Mean GR29.0 mmHgAVA (VTI) 1.4 cm2 SUMIT (VMAX)1.4 cm2 Mitral Valve MV E Vmax71.8 cm/sDECEL Ffrr119 ms MV A Vmax97.5 cm/sP 1/2 T111 ms E/A ratio0.7MVA (PHT)2.0 cm2 TDI E/E' Dwchql76.1E/E' [id number] Medial E' Peak V5.50 cm/sLateral E' Peak V5.00 cm/s Tricuspid Valve TR Vmax2.7 m/sRAP (EST) 10 yaYtRFGN68.5 mmHg TR Peak GR28.5 mmHg Left Ventricle The left ventricle is mildly dilated. Severe Distal anterior - septal and apical There is normal lef t ventricular wall thickness. LVEF is 35-40%. The left ventricular diastolic function is normal. Right Ventricle The right ventricle is normal size. The right ventricular systolic function is normal. Atria The left atrium is severely dilated LASVI 55.20m/m. Small mobile echogenicity vs artifact seen in le ft atrium. The right atrium size is normal. Aortic Valve The aortic valve is normal in structure. No aortic regurgitation is present. There is moderate aortic valvular stenosis. Calculated aortic valve area is 1.4 cm2 with mean pressure gradient of 29 mmHg. L VOT VTI / AV VTI - 0.34 Mitral Valve The mitral valve is mildly thickened There is trace of mitral valve regurgitation noted. There is no mitral valve stenosis. Tricuspid Valve The tricuspid valve is normal in structure. There is mild Right ventricular systolic pressure is elizabeth mated at 38 mmHg. of tricuspid valve regurgitation noted. Pulmonic Valve The pulmonary valve is normal in structure. There is no pulmonic valvular regurgitation. Great Vessels The aortic root is normal in size. The IVC is normal in size and collapses >50% with inspiration. Pericardium There is no pericardial effusion. Other Information Quality : Adequate Conclusion The left ventricle is mildly dilated. LVEF is 35-40%. Severe Distal anterior - septal and apical There is moderate aortic valvular stenosis. Calculated aortic valve area is 1.4 cm2 with mean pressure gradient of 29 mmHg. LVOT VTI / AV VTI - 0.34 Right ventricular systolic pressure is estimated at 38 mmHg. of tricuspid valve regurgitation noted .
--- NOTE | 2024-10-30 13:08 | PN ---
[facility] PROGRESS NOTE Date of Service: Oct 30, 2024 Time of Service: 13:02 SUBJECTIVE: [Patient underwent left heart catheterization PCI and stent placement yesterday. no acute events reported overnight. ] 10/28 Patient is experiencing episodes of hypotension. Blood pressure medications have been adjusted. 10/29 patient continues with hypotension. Overnight patient developed AFib with RVR and was placed on amiodarone drip. Hemoglobin dropped. 10/30 patient was transferred out of the ICU yesterday. patient continues with low-grade fevers. White count within normal limit. REVIEW OF SYSTEMS CONSTITUTIONAL: Denies fevers, chills, or night sweats. No unintentional weight loss reported. NEUROLOGICAL: Denies headache, amaurosis fugax, motor weakness, sensory deficit, vertigo/spinning sensation, gait abnormalities, or tremors. ENT: No hearing loss, otalgia, otorrhea, rhinitis, rhinorrhea, hoarseness, or sore throat. CARDIOVASCULAR: Denies any exertional angina, dyspnea on exertion, orthopnea, paroxysmal nocturnal dyspnea, palpitations, life-threatening arrhythmias, claudication. PULMONARY: Denies any shortness of breath, cough, phlegm/sputum, hemoptysis, pleuritic chest pain. SLEEP: Denies morning headaches, daytime somnolence or napping. Denies difficulty falling asleep, staying asleep, waking from sleep. Denies knowledge of snoring. GASTROINTESTINAL: Denies any type of dysphagia to either liquids or solids. Denies nausea, vomiting, pyrosis, early satiety, abdominal pain, diarrhea, constipation, or changes in stool consistency or caliber. Denies coffee-ground emesis, hematemesis, hematochezia, or melanotic stools. GENITOURINARY: Denies frequency, urgency, nocturia, hematuria or incontinence (Storage/Irritative symptoms.) Low urinary stream, straining to void, urinary intermittency or hesitancy, splitting of the voiding stream, terminal dribbling. ENDOCRINOLOGIC: Denies polyuria, polydipsia, polyphagia or heat/cold intolerances. HEMATOLOGIC: Denies thrombophilia/previous clots, or coagulopathy/bleeding disorders. ONCOLOGIC: Denies personal history of malignancy. DERMATOLOGIC: Denies rashes or pruritus. PSYCHIATRIC: Denies any suicidal or homicidal ideation. Denies hallucinations. PHYSICAL EXAM GENERAL APPEARANCE: The patient is awake, alert, and oriented, in no acute cardiopulmonary distress. NEUROLOGICAL: Cranial nerves II-XII grossly intact. Motor is 5/5 in bilateral upper and lower extremities proximal to distal. No sensory deficits. HEENT: Face is symmetric. Pupils are equal and reactive. Extraocular movements are intact. NECK: Supple. No JVD. No thyromegaly. No submental, submandibular, pre-/postauricular, occipital or supraclavicular lymphadenopathy. CHEST: Normal chest expansion. No Telemetry. LUNGS: Absence of any rales, rhonchi or any wheezing. CARDIOVASCULAR: Regular. S1 and S2 normal. No appreciable rubs, murmurs or gallops. ABDOMEN: Soft, nontender, and nondistended. There is no rebound, voluntary guarding, or rigidity. : Deferred. No Rendon. EXTREMITIES: Non-edematous and not cyanotic. No clubbing. Good capillary refill. SKIN: No skin breakdown. Vital Signs (last 8hr) Date Time Temp Pulse Resp B/P (MAP) Pulse Ox O2 Delivery O2 Flow Rate FiO2 10/30/24 12:01 98.2 68 18 99/63 98 Room Air 10/30/24 08:00 97.9 81 18 107/72 95 Room Air 10/30/24 07:55 98 Room Air* 0 21 LABS: Laboratory: Test 10/30/24 11:23 10/30/24 03:44 10/29/24 11:59 10/29/24 04:16 Range/Units Whole Blood Glucose 112 H 70-110 MG/DL White Blood Count 9.5 4.8-10.8 K/uL Red Blood Count 3.28 L 4.50-6.20 MIL/uL Hemoglobin 7.1 L 14.0-18.0 g/dL Hematocrit 23.8 L 42-54 % Mean Corpuscular Volume 72.6 L 79-99 fL Mean Corpuscular Hemoglobin 21.6 L 27.0-33.0 pg Mean Corpuscular Hemoglobin Concent 29.8 L 32.0-36.0 g/dL Red Cell Distribution Width 18.6 H 11.0-15.5 % Platelet Count 234 130-400 K/uL Mean Platelet Volume 10.4 7.5-10.5 fL Nucleated Red Blood Cells 0.0 0.0-0.19 % Sodium Level 138 136-145 mmol/L Potassium Level 4.1 3.5-5.1 mmol/L Chloride Level 106 101-111 mmol/L Carbon Dioxide Level 24 21-32 mmol/L Blood Urea Nitrogen 20 H 7-18 mg/dL Creatinine 1.0 0.5-1.3 mg/dL Glomerular Filtration Rate Calc 81 >90 mL/min Random Glucose 96 70-105 mg/dL Total Calcium 7.7 L 8.5-10.1 mg/dL Total Bilirubin 0.4 # 0.2-1.0 mg/dL Aspartate Amino Transf (AST/SGOT) 35 10-37 U/L Alanine Aminotransferase (ALT/SGPT) 17 12-78 U/L Alkaline Phosphatase 56 50-136 U/L Total Protein 5.8 L 6.0-8.3 g/dL Albumin 2.6 L 3.5-5.0 g/dL Hemoglobin A1c 5.8 4.0-6.0 % Estimated Average Glucose (eAG) 120 70-126 mg/dL Triglycerides Level 60 30-200 mg/dL Cholesterol Level 98 <200 mg/dL LDL Cholesterol 49 0-99 mg/dL HDL Cholesterol 43 29-71 mg/dL Current Medications Medications (Trade) Dose Ordered Sig/Daniel Route PRN Reason Start Time Stop Time Status Last Admin Dose Admin Acetaminophen (TYLenol 325MG TAB) 650 mg Q4H PRN PO MILD PAIN (1-3) 10/29/24 12:00 11/28/24 11:59 10/29/24 19:26 650 MG Albumin Human 50 ml @ 0 mls/hr AD IV 10/29/24 01:30 11/03/24 01:29 Albumin Human 50 ml @ 0 mls/hr AD IV 10/29/24 02:30 10/29/24 01:34 DC Amiodarone HCl (pacERONE 200MG) 400 mg BID PO 10/29/24 21:00 11/28/24 20:59 10/30/24 08:24 400 MG Amiodarone HCl 150 mg/Dextrose 103 ml @ 0 mls/hr AD PRN IV Bolus dose 10/28/24 23:00 10/29/24 07:03 DC 10/28/24 23:00 0 MLS/HR Amiodarone HCl 360 mg/Dextrose 218 ml @ 36.333 mls/ hr AD PRN IV As Directed 10/28/24 05:00 10/28/24 23:00 DC Amiodarone HCl 360 mg/Dextrose 218 ml @ 36.333 mls/ hr AD PRN IV As Directed 10/28/24 23:00 10/29/24 07:03 DC 10/28/24 23:13 36.333 MLS/HR Amiodarone HCl 540 mg/Dextrose 300 ml @ 16.667 mls/ hr AD PRN IV As directed 10/29/24 05:00 11/28/24 04:59 10/29/24 05:26 16.667 MLS/HR Aspirin (Aspirin 81mg Chew Tab) 81 mg DAILY PO 10/27/24 09:00 11/26/24 08:59 10/30/24 08:25 81 MG Atorvastatin Calcium (LIPItor 40MG) 40 mg HS PO 10/27/24 21:00 11/26/24 20:59 10/29/24 19:59 40 MG Clopidogrel Bisulfate (plaVIX 75MG) 75 mg DAILY PO 10/28/24 09:00 11/27/24 08:59 10/30/24 08:24 75 MG Dextrose (D50w) 50 ml AD PRN IV HYPOGLYCEMIA PROTOCOL 10/27/24 06:00 11/26/24 05:59 Glucagon (Glucagon 1mg Kit) 1 mg AD PRN IM HYPOGLYCEMIA PROTOCOL 10/27/24 06:00 11/26/24 05:59 Heparin Sodium (Porcine) (HEParin 5,000 UNIT VIAL) *calculation based on ACTUAL B... AD PRN IV HEPARIN PROTOCOL 10/27/24 05:00 10/30/24 08:30 DC Heparin Sodium (Porcine) (HEParin 5,000 UNIT VIAL) 8,000 unit ONCE SQ 10/27/24 04:00 10/27/24 04:02 DC Heparin Sodium/ Dextrose 250 ml @ 0 mls/hr PROTOCOL PRN IV PROTOCOL 10/27/24 03:00 10/28/24 02:59 DC 10/27/24 03:43 13.09 MLS/HR Metoprolol Tartrate (loprESSOR) 12.5 mg BID PO 10/28/24 09:00 11/27/24 08:59 10/30/24 08:24 12.5 MG Metoprolol Tartrate (loprESSOR) 25 mg BID PO 10/27/24 09:00 10/28/24 07:38 DC Nitroglycerin (Nitrostat) 0.4 mg AD PRN SL CHEST PAIN 10/27/24 03:00 10/27/24 03:06 DC Nitroglycerin/ Dextrose 0 ml @ 0 mls/hr AD PRN IV TITRATE 10/27/24 03:30 11/26/24 03:29 10/27/24 03:40 3 MLS/HR Sodium Chloride 1,000 ml @ 0 mls/hr Q0M IV 10/28/24 10:00 11/27/24 09:59 10/28/24 10:07 300 MLS/HR Sodium Chloride 1,000 ml @ 100 mls/hr Q10H IV 10/28/24 10:00 11/27/24 09:59 10/30/24 01:01 100 MLS/HR DIAGNOSTICS / RADIOLOGY: [ ] ASSESSMENT: [ ] Acute anterior STEMI, POA Acute systolic heart failure, POA Essential hypertension Diabetes mellitus type 2 Hyperlipidemia CAD status post stent placement in 2014 History of heart stent [place] [address] Kulkarni Anemia, rule out iron-deficiency History of cocaine use Dependence Anxiety Chronic nicotine disorder History of thyroid cancer status post thyroidectomy PLAN: [ ] Admitted to the ICU S/p heart catheterization with successful angioplasty and drug-eluting stent to proximal in stent restenosis of the previous stent placed 2014 Continue heart healthy diet Monitor for bleeding Continue dual antiplatelet therapy with [id number] mg p.o. daily and [id number] mg p.o. daily Continue statin therapy with atorvastatin 40 mg p.o. HS Continue oral amiodarone Continue metoprolol tartrate 12.5 mg p.o. b.i.d. as tolerated Following Dr. Higgins's recommendations Follow up 2D echo: LVEF 35-40%, moderate aortic stenosis continue IV fluids with NS Monitoring replace electrolytes Monitor a.m. labs PRN Treatment - Add when necessary meds for nausea, vomiting, pain, constipation, insomnia. DVT/GI prophylaxis- Continue heparin at current doses. Full CODE STATUS Case discussed with patient and nurse at bedside Critical care Attention time: Greater than 30 minutes EMILIA BARBER IV, MD Oct 30, 2024 13:08
--- NOTE | 2024-10-30 16:05 | HMCIMG ---
CHEST 1VW REASON: SOB COMPARISON: 10/27/2024 FINDINGS: Heart size is normal and unchanged. Lungs are clear. There is no vascular congestion. There are no pleural effusion. Mediastinum and bony thorax appear unremarkable. IMPRESSION: 1. No acute finding and no change.
--- NOTE | 2024-10-30 20:22 | PN ---
CARDIOLOGY PROGRESS REPORT LOCATION: He is now in room 205. SUBJECTIVE: This 68-year-old man presented on 10/27/2024, late in the stages of an acute anterior PR. He underwent angioplasty and stenting of the LAD by Dr. Loomis. An echocardiogram was performed on 10/28/2024 showing an ejection fraction of 35-40%. There was moderate aortic stenosis. On 10/29/2024, his hemoglobin decreased to 6.8 and hematocrit 22.7. The patient did receive 1 unit packed red blood cells with subsequent hemoglobin 8.2 and hematocrit 26.9. Today, the hemoglobin is 7.1 and hematocrit 23.8. The patient did have an episode of nonsustained ventricular tachycardia in addition to an episode of atrial fibrillation. His cardiac rhythm has remained normal sinus since beginning amiodarone. OBJECTIVE: GENERAL: Currently, the patient is resting comfortably in bed in no acute distress. He states that he feels much better. He has ambulated to the bathroom and in his room without difficulty. VITAL SIGNS: Latest blood pressure 99/63, heart rate 68. The patient did receive metoprolol tartrate 12.5 mg b.i.d. this morning, when his blood pressure was higher. LUNGS: The lungs are clear bilaterally. NECK: There is no JVD or HJR. HEART: S1 is soft. S2 single. There is no S3 or S4. There is a grade 2/6 systolic ejection quality murmur at the upper right and lower left sternal borders. No diastolic murmurs. No pericardial friction rubs. ABDOMEN: Bowel sounds are positive. No bruits. No obvious hepatomegaly. No masses. EXTREMITIES: There is no edema. LABORATORY DATA: Additional laboratory data reviewed. Cardiac rhythm, the last rhythm strip shows normal sinus rhythm. IMPRESSION: This patient is stable and currently is doing well. His blood pressure precludes increasing doses of the beta jeferson and preclude giving him angiotensin-converting enzyme inhibitor receptor jeferson at this particular time. Other medications will continue. PLAN: Continue medical therapy. TID: [id number] RECEIPT: [id number]
[2024-10-30] MEDS: furoSEMIDE 20MG VIAL IV ONE (20:36)
[2024-10-30 20:43] LABS: HEMATOCRIT 30.4 % (42-54)
[2024-10-31] VITALS (9 sets, daily range): BP systolic 102–125; BP diastolic 60–76; PULSE 65–81; RESP 18–20; TEMP 97.5–101.4; O2SAT 97–99
[2024-10-31 04:33] LABS: HEMATOCRIT 27.1 % (42-54); MEAN CORPUSCULAR HEMOGLOBIN 22.6 pg (27.0-33.0); MEAN CORPUSCULAR HGB CONC 30.6 g/dL (32.0-36.0); MEAN CORPUSCULAR VOLUME 73.8 fL (79-99); RED BLOOD CELL COUNT(AUTO) 3.67 MIL/uL (4.50-6.20); RED CELL DISTRIBUTION WIDTH 19.3 % (11.0-15.5)
[2024-10-31 04:50] LABS: ALBUMIN 2.6 g/dL (3.5-5.0); BILIRUBIN,TOTAL 0.5 mg/dL (0.2-1.0); CREATININE 1.1 mg/dL (0.5-1.3); POTASSIUM 3.6 mmol/L (3.5-5.1)
--- NOTE | 2024-10-31 07:39 | PN ---
INFECTIOUS DISEASE FOLLOWUP NOTE DATE OF SERVICE: 10/30/2024 SUBJECTIVE: The patient is seen and examined at bedside today. The patient has no fever, no chills. No nausea, no vomiting, no abdominal pain. No bleeding tendency. Sharp pain to the right foot. The patient has been evaluated by Cardiology for extremities. The patient's was updated at the bedside. PHYSICAL EXAMINATION: VITAL SIGNS: Temperature . EYES: No icterus. Pupils are equal and reactive. HENT: No oral thrush seen. Moist oral mucosa. NECK: Supple. No JVD or thyromegaly. LUNGS: Good air entry. No rales, no rhonchi. CARDIOVASCULAR: S1, S2 regular. No murmur heard. ABDOMEN: Full, soft, nontender. Bowel sounds present. CENTRAL NERVOUS SYSTEM: Awake, alert, oriented x 3. No focal deficits. SKIN: No rashes, no itchiness. LYMPHATICS: No peripheral lymphadenopathy. EXTREMITIES: Deep tissue injury to the right . Gangrenous changes to the right great toe. ASSESSMENT: A 68-year-old male with multiple problems include: * Urinary tract infection. * multidrug resistant organism. * Peripheral vascular disease. * Encephalopathy. * Gastrointestinal bleed. * Anemia. * . PLAN: * Continue Zosyn. * Continue wound care. * Continue antiplatelet. * Continue antihypertensive. * Continue nutritional support. * Monitor electrolytes. * The patient will be followed up closely. TID: [id number] RECEIPT: [id number]
--- NOTE | 2024-10-31 11:52 | PN ---
[facility] PROGRESS NOTE Date of Service: Oct 31, 2024 Time of Service: 11:46 SUBJECTIVE: [Patient underwent left heart catheterization PCI and stent placement yesterday. no acute events reported overnight. ] 10/28 Patient is experiencing episodes of hypotension. Blood pressure medications have been adjusted. 10/29 patient continues with hypotension. Overnight patient developed AFib with RVR and was placed on amiodarone drip. Hemoglobin dropped. 10/30 patient was transferred out of the ICU yesterday. patient continues with low-grade fevers. White count within normal limit. 10/31 patient received a blood transfusion yesterday afternoon and fevers last night. REVIEW OF SYSTEMS CONSTITUTIONAL: Denies fevers, chills, or night sweats. No unintentional weight loss reported. NEUROLOGICAL: Denies headache, amaurosis fugax, motor weakness, sensory deficit, vertigo/spinning sensation, gait abnormalities, or tremors. ENT: No hearing loss, otalgia, otorrhea, rhinitis, rhinorrhea, hoarseness, or sore throat. CARDIOVASCULAR: Denies any exertional angina, dyspnea on exertion, orthopnea, paroxysmal nocturnal dyspnea, palpitations, life-threatening arrhythmias, claudication. PULMONARY: Denies any shortness of breath, cough, phlegm/sputum, hemoptysis, pleuritic chest pain. SLEEP: Denies morning headaches, daytime somnolence or napping. Denies difficulty falling asleep, staying asleep, waking from sleep. Denies knowledge of snoring. GASTROINTESTINAL: Denies any type of dysphagia to either liquids or solids. Denies nausea, vomiting, pyrosis, early satiety, abdominal pain, diarrhea, c onstipation, or changes in stool consistency or caliber. Denies coffee-ground emesis, hematemesis, hematochezia, or melanotic stools. GENITOURINARY: Denies frequency, urgency, nocturia, hematuria or incontinence (Storage/Irritative symptoms.) Low urinary stream, straining to void, urinary intermittency or hesitancy, splitting of the voiding stream, terminal dribbling. ENDOCRINOLOGIC: Denies polyuria, polydipsia, polyphagia or heat/cold intolerances. HEMATOLOGIC: Denies thrombophilia/previous clots, or coagulopathy/bleeding disorders. ONCOLOGIC: Denies personal history of malignancy. DERMATOLOGIC: Denies rashes or pruritus. PSYCHIATRIC: Denies any suicidal or homicidal ideation. Denies hallucinations. PHYSICAL EXAM GENERAL APPEARANCE: The patient is awake, alert, and oriented, in no acute ca rdiopulmonary distress. NEUROLOGICAL: Cranial nerves II-XII grossly intact. Motor is 5/5 in bilateral upper and lower extremities proximal to distal. No sensory deficits. HEENT: Face is symmetric. Pupils are equal and reactive. Extraocular movements are intact. NECK: Supple. No JVD. No thyromegaly. No submental, submandibular, pre- /postauricular, occipital or supraclavicular lymphadenopathy. CHEST: Normal chest expansion. No Telemetry. LUNGS: Absence of any rales, rhonchi or any wheezing. CARDIOVASCULAR: Regular. S1 and S2 normal. No appreciable rubs, murmurs or gallops. ABDOMEN: Soft, nontender, and nondistended. There is no rebound, voluntary guarding, or rigidity. : Deferred. No Rendon. EXTREMITIES: Non-edematous and not cyanotic. No clubbing. Good capillary refill. SKIN: No skin breakdown. Vital Signs (last 8hr) Date Time Temp Pulse Resp B/P (MAP) Pulse Ox O2 Delivery O2 Flow Rate FiO2 10/31/24 08:07 97.9 70 18 110/75 96 Room Air 10/31/24 07:15 97 Room Air* 0 21 10/31/24 03:50 101.5 81 20 125/76 97 Room Air LABS: Laboratory: Test 10/31/24 11:33 10/31/24 03:51 10/31/24 01:05 10/30/24 03:44 Range/Units Whole Blood Glucose 102 70-110 MG/DL White Blood Count 10.0 4.8-10.8 K/uL Red Blood Count 3.67 L 4.50-6.20 MIL/uL Hemoglobin 8.3 L 14.0-18.0 g/dL Hematocrit 27.1 L 42-54 % Mean Corpuscular Volume 73.8 L 79-99 fL Mean Corpuscular Hemoglobin 22.6 L 27.0-33.0 pg Mean Corpuscular Hemoglobin Concent 30.6 L 32.0-36.0 g/dL Red Cell Distribution Width 19.3 H 11.0-15.5 % Platelet Count 238 130-400 K/uL Mean Platelet Volume 10.5 7.5-10.5 fL Nucleated Red Blood Cells 0.0 0.0-0.19 % Sodium Level 139 136-145 mmol/L Potassium Level 3.6 3.5-5.1 mmol/L Chloride Level 105 101-111 mmol/L Carbon Dioxide Level 23 21-32 mmol/L Blood Urea Nitrogen 18 7-18 mg/dL Creatinine 1.1 0.5-1.3 mg/dL Glomerular Filtration Rate Calc 73 >90 mL/min Random Glucose 109 H 70-105 mg/dL Total Calcium 8.1 L 8.5-10.1 mg/dL Total Bilirubin 0.5 0.2-1.0 mg/dL Aspartate Amino Transf (AST/SGOT) 26 10-37 U/L Alanine Aminotransferase (ALT/SGPT) 13 12-78 U/L Alkaline Phosphatase 58 50-136 U/L Total Protein 6.0 6.0-8.3 g/dL Albumin 2.6 L 3.5-5.0 g/dL Stool Occult Blood NEGATIVE NEGATIVE Vitamin D 25-Hydroxy 23.9 30.0-100.0 ng/mL Test 10/29/24 11:59 Range/Units Hemoglobin A1c 5.8 4.0-6.0 % Estimated Average Glucose (eAG) 120 70-126 mg/dL Current Medications Medications (Trade) Dose Ordered Sig/Daniel Route PRN Reason Start Time Stop Time Status Last Admin Dose Admin Acetaminophen (TYLenol 325MG TAB) 650 mg Q4H PRN PO MILD PAIN (1-3) 10/29/24 12:00 11/28/24 11:59 10/31/24 03:07 650 MG Albumin Human 50 ml @ 0 mls/hr AD IV 10/29/24 01:30 11/03/24 01:29 Albumin Human 50 ml @ 0 mls/hr AD IV 10/29/24 02:30 10/29/24 01:34 DC Amiodarone HCl (pacERONE 200MG) 400 mg BID PO 10/29/24 21:00 11/28/24 20:59 10/31/24 07:45 400 MG Amiodarone HCl 150 mg/Dextrose 103 ml @ 0 mls/hr AD PRN IV Bolus dose 10/28/24 23:00 10/29/24 07:03 DC 10/28/24 23:00 0 MLS/HR Amiodarone HCl 360 mg/Dextrose 218 ml @ 36.333 mls/ hr AD PRN IV As Directed 10/28/24 05:00 10/28/24 23:00 DC Amiodarone HCl 360 mg/Dextrose 218 ml @ 36.333 mls/ hr AD PRN IV As Directed 10/28/24 23:00 10/29/24 07:03 DC 10/28/24 23:13 36.333 MLS/HR Amiodarone HCl 540 mg/Dextrose 300 ml @ 16.667 mls/ hr AD PRN IV As directed 10/29/24 05:00 11/28/24 04:59 10/29/24 05:26 16.667 MLS/HR Aspirin (Aspirin 81mg Chew Tab) 81 mg DAILY PO 10/27/24 09:00 11/26/24 08:59 10/31/24 07:46 81 MG Atorvastatin Calcium (LIPItor 40MG) 40 mg HS PO 10/27/24 21:00 11/26/24 20:59 10/30/24 20:11 40 MG Clopidogrel Bisulfate (plaVIX 75MG) 75 mg DAILY PO 10/28/24 09:00 11/27/24 08:59 10/31/24 07:45 75 MG Dextrose (D50w) 50 ml AD PRN IV HYPOGLYCEMIA PROTOCOL 10/27/24 06:00 11/26/24 05:59 Glucagon (Glucagon 1mg Kit) 1 mg AD PRN IM HYPOGLYCEMIA PROTOCOL 10/27/24 06:00 11/26/24 05:59 Heparin Sodium (Porcine) (HEParin 5,000 UNIT VIAL) *calculation based on ACTUAL B... AD PRN IV HEPARIN PROTOCOL 10/27/24 05:00 10/30/24 08:30 DC Heparin Sodium (Porcine) (HEParin 5,000 UNIT VIAL) 8,000 unit ONCE SQ 10/27/24 04:00 10/27/24 04:02 DC Heparin Sodium/ Dextrose 250 ml @ 0 mls/hr PROTOCOL PRN IV PROTOCOL 10/27/24 03:00 10/28/24 02:59 DC 10/27/24 03:43 13.09 MLS/HR Metoprolol Tartrate (loprESSOR) 12.5 mg BID PO 10/28/24 09:00 11/27/24 08:59 10/31/24 07:46 12.5 MG Metoprolol Tartrate (loprESSOR) 25 mg BID PO 10/27/24 09:00 10/28/24 07:38 DC Nitroglycerin (Nitrostat) 0.4 mg AD PRN SL CHEST PAIN 10/27/24 03:00 10/27/24 03:06 DC Nitroglycerin/ Dextrose 0 ml @ 0 mls/hr AD PRN IV TITRATE 10/27/24 03:30 11/26/24 03:29 10/27/24 03:40 3 MLS/HR Sodium Chloride 1,000 ml @ 0 mls/hr Q0M IV 10/28/24 10:00 11/27/24 09:59 10/28/24 10:07 300 MLS/HR Sodium Chloride 1,000 ml @ 100 mls/hr Q10H IV 10/28/24 10:00 11/27/24 09:59 10/30/24 01:01 100 MLS/HR DIAGNOSTICS / RADIOLOGY: [ ] ASSESSMENT: [ ] Acute anterior STEMI, POA Acute systolic heart failure, POA Essential hypertension Diabetes mellitus type 2 Hyperlipidemia CAD status post stent placement in 2014 History of heart stent in [address] Kulkarni Anemia, rule out iron-deficiency History of cocaine use Dependence Anxiety Chronic nicotine disorder History of thyroid cancer status post thyroidectomy PLAN: S/p heart catheterization with successful angioplasty and drug-eluting stent to proximal in stent restenosis of the previous stent placed 2014 Follow up with the Infectious Disease -continue Zosyn Continue heart healthy diet Monitor for bleeding Continue dual antiplatelet therapy with aspirin 81 mg p.o. daily and Plavix 75 mg p.o. daily Continue statin therapy with atorvastatin 40 mg p.o. HS Continue oral amiodarone Continue metoprolol tartrate 12.5 mg p.o. b.i.d. as tolerated Following Dr. Higgins's recommendations Follow up 2D echo: LVEF 35-40%, moderate aortic stenosis Discontinue IV fluids Monitoring replace electrolytes Monitor a.m. labs PRN Treatment - Add when necessary meds for nausea, vomiting, pain, constipation, insomnia. DVT/GI prophylaxis- Continue heparin at current doses. Full CODE STATUS Case discussed with patient and nurse at bedside Attention time: Greater than 30 minutes EMILIA BARBER IV, MD Oct 31, 2024 11:52
--- NOTE | 2024-10-31 13:30 | PN ---
[facility] PROGRESS NOTE Date Patient Seen: Oct 31, 2024 Time of Visit: 13:29 Supervising Physician: [ ] Primary Care Physician: [Dr. Bob Gonzalez ] Outpatient Specialists: [ ] Inpatient Consults: [[facility] team: ICU, Dr. Zurdo Loomis: cardiology ] PROBLEM LIST: Acute on chronic anemia requiring blood transfusions Non-symptomatic hypotension, rule-out cardiogenic vs. hypovolemic shock- not POA STEMI s/p cardiac cath with LAD stent-POA 10/27/[address] Loomis Paroxysmal afib, requiring antiarrythmia infusion-not POA Primary HTN CHF, systolic vs. diastolic (as stated by the patient), not on exacerbation HLD CAD s/p stent in 2014 HX of MIs Diabetes mellitus HX of thyroid CA s/p thyroidectomy Chronic arthritis Chronic nicotine disorder: 1-pack x 20years Cocaine dependency Depression Anxiety with panic attack INTERVAL HISTORY: Patient evaluated at bedside, he is resting comfortably today, continues on Plavix statin and aspirin. Patient received 1 unit PRBC yesterday, hemoglobin at 8.3 today. Most recent chest x-ray shows no acute cardiopulmonary processes. White count today is 10.0. Patient denies any new onset symptoms, no overnight events reported by nursing staff. Patient's vitals remained within normal limits at this time. He is pending discharge to [facility] expected within the next 48 hours. REVIEW OF SYSTEMS: 12 point ROS reviewed with patient. Pertinent positives mentioned above. Otherwise negative. PHYSICAL EXAM: GENERAL: alert, awake oriented x 3 HEENT: EOMI, Sclera non icteric, moist mucosa NECK: Supple, no JVD, trachea midline LUNGS: Clear breath sounds bilaterally. No wheezes HEART: Regular rate and rhythm. Normal S1 and S2, without murmurs ABD: Abdomen soft, nontender. Bowel sounds present EXT: No clubbing cyanosis or edema. RIght groin stable without signs of bleeding or hematoma, pulses palpable and strong NEURO: Alert and oriented to person, follows commands Vital Signs (last 8hr) Date Time Temp Pulse Resp B/P (MAP) Pulse Ox O2 Delivery O2 Flow Rate FiO2 10/31/24 12:22 99.9 10/31/24 12:06 99.9 67 18 102/60 98 Room Air 10/31/24 08:07 97.9 70 18 110/75 96 Room Air 10/31/24 07:15 97 Room Air* 0 21 LABS: Hematology Labs: Test 10/31/24 03:51 Range/Units White Blood Count 10.0 4.8-10.8 K/uL Red Blood Count 3.67 L 4.50-6.20 MIL/uL Hemoglobin 8.3 L 14.0-18.0 g/dL Hematocrit 27.1 L 42-54 % Mean Corpuscular Volume 73.8 L 79-99 fL Mean Corpuscular Hemoglobin 22.6 L 27.0-33.0 pg Mean Corpuscular Hemoglobin Concent 30.6 L 32.0-36.0 g/dL Red Cell Distribution Width 19.3 H 11.0-15.5 % Platelet Count 238 130-400 K/uL Mean Platelet Volume 10.5 7.5-10.5 fL Nucleated Red Blood Cells 0.0 0.0-0.19 % Chemistry Labs: Test 10/31/24 11:33 10/31/24 03:51 10/30/24 03:44 Range/Units Whole Blood Glucose 102 70-110 MG/DL Sodium Level 139 136-145 mmol/L Potassium Level 3.6 3.5-5.1 mmol/L Chloride Level 105 101-111 mmol/L Carbon Dioxide Level 23 21-32 mmol/L Blood Urea Nitrogen 18 7-18 mg/dL Creatinine 1.1 0.5-1.3 mg/dL Glomerular Filtration Rate Calc 73 >90 mL/min Random Glucose 109 H 70-105 mg/dL Total Calcium 8.1 L 8.5-10.1 mg/dL Total Bilirubin 0.5 0.2-1.0 mg/dL Aspartate Amino Transf (AST/SGOT) 26 10-37 U/L Alanine Aminotransferase (ALT/SGPT) 13 12-78 U/L Alkaline Phosphatase 58 50-136 U/L Total Protein 6.0 6.0-8.3 g/dL Albumin 2.6 L 3.5-5.0 g/dL Vitamin D 25-Hydroxy 23.9 30.0-100.0 ng/mL DIAGNOSTICS / RADIOLOGY RESULTS: [ ] PLAN 10/29/2024: For now, we are going to continue current management for the patient. We will continue on room air and we will adjust oxygen needs. The patient will continue on amiodarone drip and we will follow the Cardiology recommendations. The patient is continue on transfusion of PRBCs and we will repeat the H and H 2 hours post transfusion. We will repeat surveillance labs in the morning. Monitor the patient's progress and response to management. We will continue to provide general supportive care, GI and DVT prophylaxis. Further orders per attending MD and hospital course. NEURO: Minimize central acting medications as possible. Fall Precautions. Well lighted room through the day and minimize interruptions through the night to prevent acute delirium. PULMONARY: Supplemental 02 as needed Titrate Fio2 to keep Spo2 > or = 90% DuoNebs and CPT as needed IS hourly while awake for pulmonary hygiene Out of bed to chair as tolerated VAP Bundle CARDIOVASCULAR: Follow hemodynamics. Titrate vasopressor to keep MAP >65 or systolic blood pressure >95mmHg DIPS: [ ] LINES: [ ] GI & NUTRITION: Continue nutritional support Aspirations precautions Prokinetic agents and laxatives as needed KIDNEYS & ELECTROLYTES: Strict monitoring of intake and output Daily weights Avoid nephrotoxic agents Monitor electrolytes and replace as needed Goal urine output of 30mL/hr or 0.5mL/kg/hr Urine output: [ ] Fluid Balance: [ ] ENDOCRINE: Maintain blood glucose between 100-180 at all times. Insulin sliding scale for blood glucose management INFECTIOUS DISEASE: Trend temperature. Victor-culture if febrile. Micro: [ ] Antibiotics: [ ] HEMATOLOGY & COAGULATION: Monitor H&H. Keep Hgb > 7 Transfuse 1 unit of PRBC for Hgb < 7 Transfuse 1 pack of platelets of platelets < 20, 000 Watch for any signs and symptoms of bleeding SKIN: Pressure ulcer prevention per facility protocol Rehab: PT/OT Prophylaxis: GI: [ ] DVT: [ ] Code Status: Full Resuscitation Disposition: ICU Other: Total patient care time exceeds 35 minutes excluding all procedures. Case was discussed and seen with my supervising physician. The above plan was formulated and agreed upon. PAUL SCHREIBER Oct 31, 2024 13:30
[2024-10-31 14:35] LABS: COVID19 (SARS ANTIGEN RAPID) PRESUMPTIVE NEGATIVE (NEGATIVE); INFLUENZA TYPE A Negative For Type A (NEGATIVE); INFLUENZA TYPE B Negative For Type B (NEGATIVE)
[2024-10-31 17:38] LABS: APPEARANCE,URINE CLEAR (CLEAR); BILIRUBIN,URINE NEGATIVE (NEGATIVE); COLOR,URINE YELLOW (YELLOW); GLUCOSE, URINE (UA) 30 mg/dL (NEGATIVE); KETONES,URINE NEGATIVE (NEGATIVE); LEUKOCYTE ESTERASE ,URINE NEGATIVE Leu/uL (NEGATIVE); NITRATE,URINE NEGATIVE (NEGATIVE); OCCULT BLOOD,URINE NEGATIVE (NEGATIVE); PH,URINE 5.5 (5.0-8.0); PROTEIN,URINE 20 mg/dL (NEGATIVE); UROBILINOGEN,URINE 0.2 mg/dL (0.2-1.0)
[2024-10-31 17:45] LABS: AMPHET/METH SCREEN,URINE NEGATIVE (NEGATIVE); BARBITURATE SCREEN, URINE NEGATIVE (NEGATIVE); BENZODIAZEPINES SCREEN,URINE POSITIVE (NEGATIVE); CANNABINOID SCREEN,URINE NEGATIVE (NEGATIVE); COCAINE SCREEN,URINE POSITIVE (NEGATIVE); OPIATE SCREEN,URINE NEGATIVE (NEGATIVE); PHENCYCLIDINE SCREEN,URINE NEGATIVE (NEGATIVE)
[2024-10-31 17:51] LABS: ADD UA MICROSCOPIC YES; BACTERIA,URINE RARE /HPF (None Seen); MUCUS,URINE RARE LPF (None Seen); OTHER CASTS, URINE 1 /LPF (None Seen); RBC,URINE 0-1 /HPF (0-1); SQUAMOUS EPITHELIAL CELL,UR RARE /HPF (0-2); WBC,URINE 0-1 /HPF (0-1)
[2024-11-01 04:00] VITALS: BP 110/70; PULSE 72; RESP 20; TEMP 100
[2024-11-01 05:14] LABS: HEMATOCRIT 25.8 % (42-54); MEAN CORPUSCULAR HEMOGLOBIN 22.8 pg (27.0-33.0); MEAN CORPUSCULAR VOLUME 73.5 fL (79-99); RED BLOOD CELL COUNT(AUTO) 3.51 MIL/uL (4.50-6.20); RED CELL DISTRIBUTION WIDTH 20.2 % (11.0-15.5); WHITE BLOOD COUNT (AUTO) 8.6 K/uL (4.8-10.8)
[2024-11-01 05:43] LABS: ALBUMIN 2.5 g/dL (3.5-5.0); BILIRUBIN,TOTAL 0.4 mg/dL (0.2-1.0); TOTAL PROTEIN, SERUM 6.2 g/dL (6.0-8.3)
[2024-11-01 07:34] VITALS: BP 106/75; PULSE 68; RESP 20; TEMP 99.2
[2024-11-01 09:10] VITALS: O2SAT 100
--- NOTE | 2024-11-01 09:40 | NUR ---
NURSING NOTE Notified Dr. Russell that patient is wanting to be discharged home today or that patient stated he will be leaving AMA. Patient states he is ready to go home. Explained to patient that Dr. Russell will be rounding soon with patient. Patient agreed that he would wait and stay until after lunch; give nursing staff a chance to get paperwork ready and hopefully, discharged home later today.
[2024-11-01] MEDS ORDERED: IpraTROPium 0.5 MG/2.5 ML INH IH SCH (10:30)
--- NOTE | 2024-11-01 11:57 | NUR ---
AMA Patient not wanting to wait for Dr. Russell for proper discharge from hospital. Patient's friends here and he states will not wait any longer. Explained to patient risks of leaving against medical advise including, heart attack, stroke, and up to . Patient refused teaching and signed AMA form. Dr. Russell informed of patient's final decision.
--- NOTE | 2024-11-04 18:19 | DS ---
Discharge Summary Hospital Course Summary: 68-year-old male past medical history of essential hypertension, hyperlipidemia, diabetes mellitus type 2 and previous [place] presents to the hospital for nonexertional midsternal chest pain without radiation. Onset occurred while at rest. Chest discomfort described as sharp. Intensity of 10/10 . Exacerbated by nothing . Alleviated by nothing . No Associated symptoms. Cardiovascular risk factors include type 2 diabetes mellitus, essential hypertension, hyperlipidemia. Patient admitted under hospitalist services. On ED presentation patient's vital signs were stable. H&H 0.2/26.1, BNP 1010, total CK 467, initial high sensitivity troponin 7.25 Followed by 564. EKG showed sinus rhythm, left bundle-branch block, acute anterior infarct. Event Av Operator Dr. Loomis was consulted. Patient was taken to [facility] department for left heart catheterization. Where he had a successful angioplasty and drug-eluting stent to proximal IS restenosis of the previous stent placed in 2014. 10/28 Patient is experiencing episodes of hypotension. Blood pressure medications have been adjusted. 10/29 patient continues with hypotension. Overnight patient developed AFib with RVR and was placed on amiodarone drip. Hemoglobin dropped. 10/30 patient was transferred out of the ICU yesterday. patient continues with low-grade fevers. White count within normal limit. 10/31 patient received a blood transfusion yesterday afternoon and fevers last night. 11/01 : pt had fever and elevated white ocunt was seen by ID who recommended cultures and cont iv anitibiotics. pt signed out AMA Procedure(s): [facility] on by Assessment/Plan: ASSESSMENT: Acute anterior STEMI, POA Acute systolic heart failure, POA Essential hypertension Diabetes mellitus type 2 Hyperlipidemia CAD status post stent placement in 2014 History of heart [place] [address] Kulkarni Anemia, rule out iron-deficiency History of cocaine use Dependence Anxiety Chronic nicotine disorder History of thyroid cancer status post thyroidectomy Discharge Instructions: signed ama Home Medications: Reported Medications Tramadol Hcl (Tramadol HCl) 50 Mg Tablet, 1 TAB .AD TID 10/28/24 Nitroglycerin (Nitroglycerin) 0.4 Mg Tab.subl, 0.4 MG AD 10/28/24 Atorvastatin Calcium (Atorvastatin Calcium) 40 Mg Tablet, 1 TAB PO HS 10/28/24 Metformin HCl (Metformin HCl) 500 Mg Tablet, 1 TAB .AD DAILY 10/28/24 Sacubitril/Valsartan (Entresto 24 mg-26 mg Tablet) 24 Mg-26 Mg Tablet, 1 TAB PO BID for blood pressure 10/28/24 Apixaban (Eliquis) 5 Mg Tablet, 1 TAB PO BID 10/28/24 Ranolazine (Ranolazine ER) 1,000 Mg Tab.er.12h, 1 TAB PO BID 10/28/24 Carvedilol (Carvedilol) 12.5 Mg Tablet, 1 TAB PO BID 10/28/24 Levothyroxine Sodium (Levothroid/Synthroid) 75 Mcg Tab, 1 TAB PO DAILY for disorder of thyroid gland 10/28/24 Clonidine HCl (Catapress) 0.1 Mg Tab, 1 TAB PO Q8H 10/28/24 Clopidogrel Bisulfate (Clopidogrel) 75 Mg Tablet, 1 TAB PO DAILY 10/28/24 Spironolactone (Spironolactone) 25 Mg Tablet, 1 TAB PO DAILY for blood pressure 10/28/24 Time spent arranging discharge: 1-30 minutes (kacey amharshad ) BARRERA OJEDA MD Nov 04, 2024 18:19
== END 2024-11-01 12:00 | disposition left against medical advice (07) | DRG 321 ==
LOC: EDH 02:03 → 2CV 05:54 → 2AH 10-29 23:12
PROVIDERS: ADMIT Internal Medicine; ATTEND Internal Medicine
PROC: 027034Z Dilation of Coronary Artery, One Artery with Drug-eluting Intraluminal Device, Percutaneous Approach (ICD-10-PCS; principal; 2024-10-27)
PROC: 4A023N7 Measurement of Cardiac Sampling and Pressure, Left Heart, Percutaneous Approach (ICD-10-PCS; 2024-10-27)
PROC: B2111ZZ Fluoroscopy of Multiple Coronary Arteries using Low Osmolar Contrast (ICD-10-PCS; 2024-10-27)
PROC: 30233N1 Transfusion of Nonautologous Red Blood Cells into Peripheral Vein, Percutaneous Approach (ICD-10-PCS; 2024-10-29)
DX: T82.855A Stenosis of coronary artery stent, initial encounter (principal); I21.09 ST elevation (STEMI) myocardial infarction involving other coronary artery of anterior wall; I50.21 Acute systolic (congestive) heart failure; R57.1 Hypovolemic shock; R57.0 Cardiogenic shock; F14.20 Cocaine dependence, uncomplicated; G93.40 Encephalopathy, unspecified; I47.20 Ventricular tachycardia, unspecified; K92.2 Gastrointestinal hemorrhage, unspecified; N39.0 Urinary tract infection, site not specified; Z16.24 Resistance to multiple antibiotics; Z20.822 Contact with and (suspected) exposure to COVID-19; E78.00 Pure hypercholesterolemia, unspecified; I44.7 Left bundle-branch block, unspecified; I25.10 Atherosclerotic heart disease of native coronary artery without angina pectoris; I44.4 Left anterior fascicular block; F17.210 Nicotine dependence, cigarettes, uncomplicated; I11.0 Hypertensive heart disease with heart failure; I48.0 Paroxysmal atrial fibrillation; I95.9 Hypotension, unspecified; F32.A Depression, unspecified; E11.51 Type 2 diabetes mellitus with diabetic peripheral angiopathy without gangrene; I35.0 Nonrheumatic aortic (valve) stenosis; F41.9 Anxiety disorder, unspecified; F41.0 Panic disorder [episodic paroxysmal anxiety]; Y83.8 Other surgical procedures as the cause of abnormal reaction of the patient, or of later complication, without mention of misadventure at the time of the procedure; D50.9 Iron deficiency anemia, unspecified; Z79.899 Other long term (current) drug therapy; Z95.5 Presence of coronary angioplasty implant and graft; Z79.82 Long term (current) use of aspirin; I25.2 Old myocardial infarction; Z79.02 Long term (current) use of antithrombotics/antiplatelets; Z82.49 Family history of ischemic heart disease and other diseases of the circulatory system; Z85.850 Personal history of malignant neoplasm of thyroid; Y92.89 Other specified places as the place of occurrence of the external cause
CPT/HCPCS: 36415; 36430; 71045; 80048; 80053; 80061; 80305; 81001; 82270; 82306; 82550; 82607; 82948; 83036; 83540; 83550; 83735; 83880; 84145; 84484; 85014; 85018; 85025; 85027; 85347; 85610; 85730; 86850; 86900; 86901; 86923; 87040; 87086; 87426; 87804; 93005; 93306; 93454; 94664; 96365; 96368; 96375; 96376; 99156; 99157; 99291; C1760; C1769; C1887; C1894; C9600; G0378; J0282; J0461; J0583; J1644; J1940; J2250; J2270; J2405; J3475; J3490; J7060; P9016; P9047; Q9967; C1725; C1874; Q9965